=== PATIENT | female | born 1955 | race Caucasian/White ===

== ENCOUNTER 2017-03-08 11:29 | Emergency (ER) | payer BC, OTHER ==
[~2017-03-08] VITALS: Ht 152.4 cm; Wt 54.1 kg
[~2017-03-08 11:29] MED LIST: CLC6 PO; CLTP PO; DSP25 PO; FAMO20TA11 PO; IBUP-1428 PO; SYN75 PO
[2017-03-08 11:34] VITALS: TEMP 36.7; Ht 152.4 cm; Wt 54.1 kg
--- NOTE | 2017-03-08 12:07 | EMERGENCY ROOM VISIT NOTE ---
History First contact with patient: 11:42 Chief Complaint: BACK PAIN Stated Complaint: MID BACK PAIN X 7-10 DAYS,WORSE AT NIGHT History of Present Illness The patient is a 61 year old female who presents to the Emergency Room with complaints of mid thoracic back pain. This pain has been present for the last 7- 10 days, worse on deep breathing and at night when lying down. Worse at night/ lying down (after getting up from falling asleep on sofa) 04/06, currently 12/05. Radiation across back both sides. No acid taste in her mouth. No associated shortness of breath, diaphoresis or palpitations. She denies any claudication, orthopnea or PND. She denies any precipitating trauma however she has recently doubled the amount of time she spends on her exercise bike. Motrin helps with the pain, she last took this at 12:30am. She denies any limb weakness, change in sensation, urinary or bowel incontinence. She denies any leg swelling or family history of DVT/PE. She has osteoporosis but no known fractures associated with this and was previously on bisphosphonates. Review of Systems Chronic dry mouth from Sjogren's. See HPI for pertinent positives & negatives. A total of 10 systems reviewed and were otherwise negative. Past Medical/Surgical History Medical Problems: (1) Hypothyroid (2) Pericardial effusion (3) Sjoegren syndrome Social History Smoking Status: Never Smoker Alcohol Use: occasionally Marital Status: Current/Historical Medications Scheduled Cholecalciferol (Vitamin D3), 1,000 INTER.UNIT PO DAILY Desipramine HCl (Desipramine HCl), 100 MG PO HS Fluticasone Propionate (Nasal) (Flonase Allergy Relief), 1 SPRAY NA DAILY Hydroxychloroquine Sulfate (Plaquenil), 200 MG PO DAILY Krill Oil (Krill Oil 500 mg), 500 MG PO DAILY Levothyroxine Sodium (Synthroid), 100 MCG PO DAILY Loratadine (Claritin), 10 MG PO DAILY Misc Natural Products (Glucosamine Chondroitin T), 1 TAB PO DAILY Multiple Minerals W/ Vitamins (Calcium Citrate +), 600 MG PO DAILY Multivitamin (Multivitamin), 1 TAB PO DAILY Allergies Coded Allergies: No Known Allergies (Unverified , 03/08/17) Physical Exam Vital Signs Date Time Temp Pulse Resp B/P (MAP) Pulse Ox O2 Delivery O2 Flow Rate FiO2 03/08/17 15:43 87 22 136/96 100 03/08/17 13:45 86 20 124/87 100 Room Air 03/08/17 13:17 90 14 158/87 99 Room Air 03/08/17 12:06 105 03/08/17 12:01 Room Air 03/08/17 11:57 97 20 131/91 100 Room Air 03/08/17 11:34 36.7 66 16 136/91 96 Room Air Pain Rating (0-10): 0 Physical Exam VITAL SIGNS: were reviewed as above GENERAL: no acute distress SKIN: Warm dry and pink, no rashes HEAD: Normocephalic and atraumatic EYES: extraocular muscles intact, pupils equal OROPHARYNX: non erythematous, clear and moist NECK: Supple, no adenopathy or meningismus LUNGS: regular rate, clear to auscultation, no crackles or wheezing, no accessory muscle use HEART: Regular rate and rhythm, heart sounds 1+2, no murmurs, no rubs ABDOMEN: Soft and nontender, bowel sounds normal BACK: no CVA tenderness EXTREMITIES: Warm and well perfused, no calf tenderness/swelling, no pedal edema. NEUROLOGICALLY: Awake alert and oriented. There is no facial droop. Speech is clear. Vision is grossly normal. Lower limb power and sensation normal. Medical Decision & Procedures ER Provider Diagnostic Interpretation: CHEST 1 VW FRONT-NOT PORTABLE CLINICAL HISTORY: BACK PAIN HISTORY OF PERICARDIAL EFFUSION. COMPARISON STUDY: 08/31/2011 FINDINGS: The cardiac and mediastinal contours are normal. There is no evidence of focal pulmonary consolidation. There is no evidence of failure. No pleural effusions are visualized.[ IMPRESSION: No active disease in the chest. Electronically signed by: Beau Guerrero M.D. 03/08/2017 1:48 PM Dictated Date/Time: 03/08/2017 1:47 PM THORACIC SPINE 3 VIEWS ROUTINE CLINICAL HISTORY: T9-T11 back pain COMPARISON STUDY: No previous studies for comparison. FINDINGS: There is a minor spinal curvature convex to the left. There are multilevel degenerative changes most pronounced in the lower thoracic spine. There are prominent anterior and lateral osteophytes. No acute fractures or traumatic subluxations are visualized. There are no destructive lesions. IMPRESSION: 1. Moderate multilevel degenerative change 2. No acute fractures. No destructive lesions are visualized. Electronically signed by: Beau Guerrero M.D. 03/08/2017 1:49 PM Dictated Date/Time: 03/08/2017 1:48 PM Laboratory Results 03/08/17 12:35 Red Blood Count 3.60, Mean Corpuscular Volume 94.7, Mean Corpuscular Hemoglobin 31.9, Mean Corpuscular Hemoglobin Concent 33.7, Mean Platelet Volume 9.1, Neutrophils (%) (Auto) 69.9, Lymphocytes (%) (Auto) 19.3, Monocytes (%) (Auto) 9.5, Eosinophils (%) (Auto) 1.0, Basophils (%) (Auto) 0.2, Neutrophils # (Auto) 6.01, Lymphocytes # (Auto) 1.66, Monocytes # (Auto) 0.82, Eosinophils # (Auto) 0.09, Basophils # (Auto) 0.02 03/08/17 12:35 Test 03/08/17 12:35 White Blood Count 8.61 K/uL (4.8-10.8) Red Blood Count 3.60 M/uL (4.2-5.4) Hemoglobin 11.5 g/dL (12.0-16.0) Hematocrit 34.1 % (37-47) Mean Corpuscular Volume 94.7 fL (80-100) Mean Corpuscular Hemoglobin 31.9 pg (25-34) Mean Corpuscular Hemoglobin Concent 33.7 g/dl (32-36) Platelet Count 264 K/uL (130-400) Mean Platelet Volume 9.1 fL (7.4-10.4) Neutrophils (%) (Auto) 69.9 % Lymphocytes (%) (Auto) 19.3 % Monocytes (%) (Auto) 9.5 % Eosinophils (%) (Auto) 1.0 % Basophils (%) (Auto) 0.2 % Neutrophils # (Auto) 6.01 K/uL (1.4-6.5) Lymphocytes # (Auto) 1.66 K/uL (1.2-3.4) Monocytes # (Auto) 0.82 K/uL (0.11-0.59) Eosinophils # (Auto) 0.09 K/uL (0-0.5) Basophils # (Auto) 0.02 K/uL (0-0.2) RDW Standard Deviation 44.7 fL (36.4-46.3) RDW Coefficient of Variation 12.9 % (11.5-14.5) Immature Granulocyte % (Auto) 0.1 % Immature Granulocyte # (Auto) 0.01 K/uL (0.00-0.02) Anion Gap 8.0 mmol/L (3-11) Est Creatinine Clear Calc Drug Dose 61.7 ml/min Estimated GFR () 108.4 Estimated GFR (Non- 93.5 BUN/Creatinine Ratio 13.6 (10-20) Calcium Level 8.6 mg/dl (8.5-10.1) Total Bilirubin 0.6 mg/dl (0.2-1) Aspartate Amino Transf (AST/SGOT) 20 U/L (15-37) Alanine Aminotransferase (ALT/SGPT) 27 U/L (12-78) Alkaline Phosphatase 106 U/L (45-117) Troponin I < 0.015 ng/ml (0-0.045) Total Protein 6.8 gm/dl (6.4-8.2) Albumin 3.7 gm/dl (3.4-5.0) Globulin 3.1 gm/dl (2.5-4.0) Albumin/Globulin Ratio 1.2 (0.9-2) Lipase 129 U/L (73-393) ECG Indication: back/shoulder pain Rate (beats per minute): 88 Rhythm: normal sinus Change: Comparison EKG 12/27/[address] elevation no longer present otherwise appears similar ED Course 11:45am Complete history and physical performed 12:15pm Discussed with Dr Raygoza who agreed with plana and separately performed history and physical After all imaging and labs were back, the results were discussed with the patient. She was reassured and discharged. Medical Decision Prior records/ancillary studies reviewed. Triage Nursing notes reviewed. Additional history obtained from patient The patient's history was concerning for back pain. Differential diagnosis: Etiologies such as musculoskeletal, disc herniation, fracture, aortic disease, metastatic disease, cord compression, discitis, infection, renal colic, gastrointestinal, acute exacerbation of chronic back pain, sciatica, cauda equina, as well as others were entertained. Physical findings: As above. No focal neurologic findings noted. ER treatment provided: On reassessment the patient felt better. Diagnostics interpreted by me: The labs revealed mild anemia only Imaging studies: moderate degenerative changes of thoracic spine but otherwise unremarkable This appears to be consistent with MSK thoracic back pain. The patient's physical examination and detailed history did not reveal any red flags for back pain such as those listed in the differential diagnosis. Therefore advanced diagnostics and consultations were felt to be unwarranted. By the evaluation outlined above emergent etiologies such as pericardial effusion, fracture, aortic disease, metastatic disease, infection, renal colic, gastrointestinal, cord compression, cauda equina, as well as others were deemed relatively unlikely. The patient informed about the findings as listed above and advised to reduce her exercise regimen, stretch more and follow up with her PCP. All questions were answered and she pleased with the investigation. Return instructions were outlined and the patient was discharged in stable condition. Referral: The patient was referred back to her primary care physician for follow-up as previously arranged in 3 days. Impression Primary Impression: Thoracic back pain Additional Impression: Anemia Departure Information Dispostion Home / Self-Care Condition GOOD Referrals Neda Montoya M.D. (PCP) Patient Instructions [facility], [facility] Resident Tracking Resident Involvement: Resident Care Provided Care Provided: Adult ED Problem Qualifiers Primary Impression: Thoracic back pain Chronicity: acute Back pain laterality: bilateral Qualified Codes: M54.6 - Pain in thoracic spine Additional Impression: Anemia Anemia type: unspecified type Qualified Codes: D64.9 - Anemia, unspecified
[2017-03-08 12:55] LABS: BASO % 0.2 %; BASO ABS # 0.02 K/uL (0-0.2); COMPLETE YES; HEMATOCRIT 34.1 % (37-47); IG% 0.1 %; LYMPH % 19.3 %; LYMPH ABS # 1.66 K/uL (1.2-3.4); MEAN CELL VOLUME 94.7 fL (80-100); MEAN CORPUSCULAR HEMOGLOBIN 31.9 pg (25-34); MEAN CORPUSCULAR HGB CONC 33.7 g/dl (32-36); MEAN PLATELET VOLUME 9.1 fL (7.4-10.4); MONO % 9.5 %; NEUT % 69.9 %; PLATELET COUNT 264 K/uL (130-400); WHITE BLOOD COUNT 8.61 K/uL (4.8-10.8)
[2017-03-08 13:15] LABS: ALT/SGPT 27 U/L (12-78); AST/SGOT 20 U/L (15-37); BLOOD UREA NITROGEN 9 mg/dl (7-18); BUN/CREATININE RATIO 13.6 (10-20); CALCIUM 8.6 mg/dl (8.5-10.1); CARBON DIOXIDE 29 mmol/L (21-32); CHLORIDE 105 mmol/L (98-107); CREATININE 0.67 mg/dl (0.60-1.20); GLUCOSE 85 mg/dl (70-99); POTASSIUM 3.9 mmol/L (3.5-5.1); SODIUM 142 mmol/L (136-145)
[2017-03-08] MEDS ORDERED: MULT-506 PO (13:19)
[2017-03-08] MEDS ORDERED: HYDR200T5 PO (13:19)
[2017-03-08] MEDS ORDERED: SYN100 PO (13:19)
[2017-03-08] MEDS ORDERED: [UNRECOGNIZED DRUG - CODE] PO (13:19)
[2017-03-08] MEDS ORDERED: MISC1TAB85 PO (13:19)
[2017-03-08] MEDS ORDERED: MULT-360 PO (13:19)
[2017-03-08] MEDS ORDERED: CHOL1000 PO (13:19)
[2017-03-08] MEDS ORDERED: KRIL1CAP24 PO (13:19)
[2017-03-08 13:20] LABS: ALB/GLOB RATIO 1.2 (0.9-2); ALKALINE PHOSPHATASE 106 U/L (45-117)
[2017-03-08] MEDS ORDERED: FLUT0.15 (13:20)
[2017-03-08] MEDS ORDERED: CLR10 PO (13:20)
--- NOTE | 2017-03-08 13:49 | DIAGNOSTIC IMAGING REPORT ---
CHEST 1 VW FRONT-NOT PORTABLE CLINICAL HISTORY: BACK PAIN HISTORY OF PERICARDIAL EFFUSION. COMPARISON STUDY: 08/31/2011 FINDINGS: The cardiac and mediastinal contours are normal. There is no evidence of focal pulmonary consolidation. There is no evidence of failure. No pleural effusions are visualized.[ IMPRESSION: No active disease in the chest. Electronically signed by: Beau Guerrero M.D. 03/08/2017 1:48 PM Dictated Date/Time: 03/08/2017 1:47 PM
--- NOTE | 2017-03-08 13:50 | DIAGNOSTIC IMAGING REPORT ---
THORACIC SPINE 3 VIEWS ROUTINE CLINICAL HISTORY: T9-T11 back pain COMPARISON STUDY: No previous studies for comparison. FINDINGS: There is a minor spinal curvature convex to the left. There are multilevel degenerative changes most pronounced in the lower thoracic spine. There are prominent anterior and lateral osteophytes. No acute fractures or traumatic subluxations are visualized. There are no destructive lesions. IMPRESSION: 1. Moderate multilevel degenerative change 2. No acute fractures. No destructive lesions are visualized. Electronically signed by: Beau Guerrero M.D. 03/08/2017 1:49 PM Dictated Date/Time: 03/08/2017 1:48 PM
--- NOTE | 2017-03-08 14:11 | EMERGENCY ROOM VISIT NOTE ---
ED Visit Note First contact with patient: 11:42 Resident Physician Supervision Note: I interviewed and examined the patient. Discussed with and agree with findings and plan as documented in the note. Any exceptions or clarifications are listed here: [None] Documented By: Jackson Raygoza
[2017-03-08 15:43] VITALS: BP 136/96; PULSE 87; O2SAT 100
[2017-04-07] MEDS ORDERED: CHOL1000 PO (13:45)
[2017-04-07] MEDS ORDERED: GLUCTAB7 PO (13:45)
[2017-04-07] MEDS ORDERED: HYDR200T5 PO (13:45)
[2017-04-07] MEDS ORDERED: [UNRECOGNIZED DRUG - CODE] PO (13:45)
[2017-04-07] MEDS ORDERED: MULT-506 PO (13:45)
[2017-04-07] MEDS ORDERED: NAPR1TAB9 PO (13:45)
[2017-04-07] MEDS ORDERED: CLR10 PO (13:45)
[2017-04-07] MEDS ORDERED: MULT-360 PO (13:45)
[2017-04-07] MEDS ORDERED: LEVO100T7 PO (13:45)
[2017-05-08] MEDS ORDERED: BROM0.07 OPL (10:23)
[2017-05-08] MEDS ORDERED: DIFL0.0519 OPL (10:23)
== END 2017-03-08 14:55 | disposition home or self-care (01) ==
LOC: C.EDB 11:31
DX: M54.6 Pain in thoracic spine (principal); D64.9 Anemia, unspecified; E03.9 Hypothyroidism, unspecified; M35.00 Sjogren syndrome, unspecified; Z79.899 Other long term (current) drug therapy

== ENCOUNTER → 2017-04-28 | Day surgery (SDC) | payer OTHER ==
[2017-04-07 13:45] VITALS: Ht 152.4 cm; Wt 51.8 kg
[~2017-04-28] VITALS: Ht 152.4 cm; Wt 51.8 kg
[~2017-04-28] MED LIST changes: +500ML BSS 0.3ML EPI 1:1000PF IRRIG ONE; +ACETAMINOPHEN 325 MG TAB PO PRN; +AMVISC PLAIN 0.8ML SYRINGE INT OCU ONE; +AMVISC PLUS 0.8ML SYRINGE INT OCU ONE; +ATROPINE SULFATE 0.1 MG/ML 5ML SYR IV PRN; +BROM0.07 OPL; +BSS FLUSH ONE; +CHOL1000 PO; -CLC6 PO; +CLR10 PO; -CLTP PO; +DIFL0.0519 OPL; -DSP25 PO; +EpHEDrine SULFATE INJ 50 MG/ML AMP IV PRN; +EpINEphrine INJ 1MG/ML AMP 1 MG/ML AMP ONE; -FAMO20TA11 PO; +FENTANYL CITRATE INJ 50 MCG/1 ML 2 ML VIAL IV PRN; +FLUMAZENIL 0.1 MG/1 ML 10 ML VIAL IV PRN; +GLUCTAB7 PO; +HYDR200T5 PO; +HYDROmorphone INJ 1 MG/ML SYR IV PRN; -IBUP-1428 PO; +LABETALOL HCL IV 5 MG/ML 20ML IV PRN; +LACTATED RINGER'S 1000ML 500 ML IV SCH; +LEVO100T7 PO; +LIDOCAINE 3.5% OPH GEL PER APPLICATION CHARGE ONE; +LIDOCAINE HCL 1% MPF 2 ML VIAL ONE; +MEPERIDINE HCL 25 MG/ML CARP IV PRN; +MIDAZOLAM HCL 1 MG/ML 2ML VIAL ONE; +MULT-360 PO; +MULT-506 PO; +NALOXONE HCL 0.4 MG/1 ML VIAL/CARP IV PRN; +NAPR1TAB9 PO; +OCUCOAT 1 ML SOLN IO ONE; +ONDANSETRON INJ 2 MG/ML 2 ML VIAL IV PRN; +PHENYLEPHRINE 100MCG/ML 5ML SYR IV PRN; +POVIDONE-IODINE OP SOLN 30 ML BTL ONE; +PROPARACAINE 0.5% OP SOLN PER DROP CHARGE OPL SCH; -SYN75 PO; +TOBRAMYCIN/DEXAMETHASONE OPH OINT PER APPLN CHARGE ONE; +[UNRECOGNIZED DRUG - CODE] PO
[2017-04-28] MEDS: PHENYLEPHRINE HCL 2.5% OP SOLN PER DROP CHARGE OPL SCH ×2 (07:36→07:44)
[2017-04-28] MEDS: TROPICAMIDE 1% OP SOLN PER DROP CHARGE OPL SCH ×2 (07:40→07:46)
[2017-04-28] MEDS: CYCLOPENTOLATE HCL 1% OP SOLN PER DROP CHARGE OPL SCH ×2 (07:41→07:45)
[2017-04-28] MEDS: KETOROLAC 0.5% OP SOLN PER DROP CHARGE OPL SCH ×2 (07:42→07:47)
[2017-04-28] MEDS: GATIFLOXACIN OP SOLN PER DROP CHARGE OPL SCH ×2 (07:43→07:53)
--- NOTE | 2017-04-28 08:00 | History & Physical Bridge - SC ---
H&P Re-Evaluation Bridge Note: I have examined the patient, reviewed the History & Physical and in the interval since the performance of the History & Physical I have noted the following changes of clinical significance: Diagnosis: Left Cataract Procedure: Left Cataract Removal with Lens Implant No changes noted
--- NOTE | 2017-04-28 08:55 | Discharge Instructions-SurgCtr ---
Discharge Instructions Date of Service Apr 28, 2017. Visit Reason for Visit: Left Cataract Discharge Discharge Diagnosis / Problem: cataract Discharge Goals Goal(s): Improve function Activity Recommendations Activity Limitations: per Instructions/Follow-up section Anesthesia . Post Anesthesia Instructions: If you have had General Anesthesia or IV Sedation: * Do not drive today. * Resume driving when surgeon permits. * Do not make important decisions or sign legal documents today. * Call surgeon for: 1. Temperature elevations greater than 101 degrees F. 2. Uncontrollable pain. 3. Excessive bleeding. 4. Persistent nausea and vomiting. 5. Medication intolerance (nausea, vomiting or rash). * For nausea and vomiting use only clear liquids such as: tea, soda, bouillon until nausea subsides, then gradually increase diet as tolerated. * If you have any concerns or questions, call your surgeon's office. If physician is unavailable and it is an emergency, call 911 or go to the nearest emergency room. . Instructions / Follow-Up Instructions / Follow-Up ACTIVITY RECOMMENDATIONS: * No strenuous lifting, jogging or running for 4 days * No swimming or yard work for 1 week. * Limited bending is permitted, such as putting on shoes. RETURN TO SCHOOL/WORK: No work until seen by physician in office. MEDICATIONS: Resume previous medications unless instructed otherwise by your surgeon. This includes eye drops for glaucoma. Zymaxid/Gatifloxacin (silva cap) - one drop every 2 hours until bedtime Nevanac/Ilevro/Prolensa/Ketorolac (edmondson cap) - one drop every 4 hours until bedtime Prednisolone/Durezol (white/pink cap, SHAKE WELL) - one drop every 2 hours until bedtime Starting tomorrow - all 3 drops every 4 hours until seen in the office Optive drops - as needed for discomfort SPECIAL CARE INSTRUCTIONS: * Wear eyeshield when sleeping, for four nights. * You may wear your own glasses or sunglasses while awake. * You may read or watch TV * You may shower and wash your face, but be gentle around the eye and pat dry. * Blurry vision and mild irritation are normal. * Call office if pain is more severe or vision becomes dark at . FOLLOW UP VISIT: Follow-up with Dr Damon tomorrow. Diet Recommendations Home Diet: resume previous diet Procedures Procedures Performed: Left Cataract Phacoemulsification With Intraocular Lens Implant; Toric Lens Pending Studies Studies pending at discharge: no Medical Emergencies . Who to Call and When: Medical Emergencies: If at any time you feel your situation is an emergency, please call 911 immediately. . Non-Emergent Contact Non-Emergency issues call your: [employer]erving Plant [employer]orer . . "Provider Documentation" section prepared by Jonnie Damon. .
[2017-04-28 08:57] VITALS: TEMP 37
--- NOTE | 2017-04-28 08:57 | [facility] Operative Report ---
Operative Report Date of Service Apr 28, 2017. Operative Report 1. PREOPERATIVE DIAGNOSIS: Cataract of the left eye. 2. POSTOPERATIVE DIAGNOSIS: Same. 3. PROCEDURE: Phacoemulsification with intraocular lens implantation of the left eye. SURGEON: Dr. Jonnie Damon. ANESTHESIA: Topical Lidocaine gel, 1% Non- Preserved intracameral Lidocaine, and monitored intravenous sedation. INDICATIONS FOR THE PROCEDURE: The patient is a 61 - year-old female with a history of cataract of the left eye causing significant visual impairment. The details of the proposed procedure were explained to the patient who asked appropriate questions and following discussion of all risks, benefits and alternatives agreed to have the procedure done. Patient had corneal astigmatism and therefore elected to have a toric lens placed. 4. OPERATION AND FINDINGS: DESCRIPTION OF PROCEDURE: After informed consent was obtained,patient was placed in an upright position and the cornea was marked at 62 degrees using the [employer] corneal marking tool. The the patient was brought to the Operating Room at the [facility]. The patient was placed in a supine position and then the left eye was prepped and draped in the usual sterile fashion for intraocular surgery. A drop of topical Lidocaine gel was placed in the operative eye. A wire lid speculum was then placed in the fornices. A corneal paracentesis was then created temporally. The Non-Preserved Lidocaine was then instilled into the anterior chamber. The anterior chamber was then pressurized with viscoelastic. A 2.0 mm clear corneal incision was then created temporally. A cystotome was inserted into the anterior chamber and used to create a tear in the anterior lens capsule. This capsular tear was then used to create a small flap and the flap was dragged in a counterclockwise direction in order to create a continuous curvilinear capsulorrhexis. Hydrodissection was accomplished with balanced salt solution. Phacoemulsification of the lens nucleus was then performed in a standard divide- and-conquer technique. The phaco time was 19 seconds with an average power of 7 %. The remaining cortical material was removed using irrigation aspiration. The capsular bag was then filled with viscoelastic. A Eric [id number] +16.0 diopters lens was then loaded into the injector and injected into the capsular bag. The lens was aligned with the previously made corneal atwood. The remaining viscoelastic was removed with the irrigation aspiration handpiece. The wound was hydrated and then checked and found to be watertight. The intraocular pressure was checked and found to be adequate. The wire lid speculum was removed and the patient's face was cleaned and dried. TobraDex ointment was placed in the inferior fornix. The patient was discharged to the Recovery Room having tolerated the procedure well. There were no complications. The patient will be seen tomorrow in the office for follow-up. I attest to the content of the Intraoperative Record and any orders documented therein. Any exceptions are noted below.
--- NOTE | 2017-04-28 09:05 | Anesthesia Progress Nt - [facility] ---
Anesthesia Post Op Note Date & Time Apr 28, 2017 at 09:05 Vital Signs Pain Intensity: 0 Vital Signs Past 12 Hours Date Time Temp Pulse Resp B/P (MAP) Pulse Ox O2 Delivery O2 Flow Rate FiO2 04/28/17 08:57 37 77 16 121/80 (94) 100 Room Air 04/28/17 07:28 36.6 90 16 122/85 (97) 100 Room Air Notes Mental Status: alert / awake / arousable, participated in evaluation Pt Amnestic to Procedure: Yes Nausea / Vomiting: adequately controlled Pain: adequately controlled Airway Patency, RR, SpO2: stable & adequate BP & HR: stable & adequate Hydration State: stable & adequate Anesthetic Complications: no major complications apparent
[2017-04-28 09:11] VITALS: BP 120/84; PULSE 78; O2SAT 100
== END | disposition home or self-care (01) ==
LOC: X.SURG 07:16
PROVIDERS: ATTEND Ophthalmology
DX: H26.9 Unspecified cataract (principal); E03.9 Hypothyroidism, unspecified; F50.81 Binge eating disorder; F32.9 Major depressive disorder, single episode, unspecified; M81.0 Age-related osteoporosis without current pathological fracture; M35.00 Sjogren syndrome, unspecified; Z82.69 Family history of other diseases of the musculoskeletal system and connective tissue; Z82.5 Family history of asthma and other chronic lower respiratory diseases; Z92.29 Personal history of other drug therapy; M19.90 Unspecified osteoarthritis, unspecified site

== ENCOUNTER → 2017-05-19 | Day surgery (SDC) | payer OTHER ==
[2017-05-08 10:24] VITALS: Ht 152.4 cm; Wt 51.8 kg
[~2017-05-19] VITALS: Ht 152.4 cm; Wt 51.8 kg
[~2017-05-19] MED LIST changes: -FENTANYL CITRATE INJ 50 MCG/1 ML 2 ML VIAL IV PRN; -FLUMAZENIL 0.1 MG/1 ML 10 ML VIAL IV PRN; -HYDROmorphone INJ 1 MG/ML SYR IV PRN; -LABETALOL HCL IV 5 MG/ML 20ML IV PRN; -MEPERIDINE HCL 25 MG/ML CARP IV PRN; -NALOXONE HCL 0.4 MG/1 ML VIAL/CARP IV PRN; -PHENYLEPHRINE 100MCG/ML 5ML SYR IV PRN; -PROPARACAINE 0.5% OP SOLN PER DROP CHARGE OPL SCH; +PROPARACAINE 0.5% OP SOLN PER DROP CHARGE OPR SCH
[2017-05-19] MEDS: PHENYLEPHRINE HCL 2.5% OP SOLN PER DROP CHARGE OPR SCH ×2 (09:41→09:46)
[2017-05-19] MEDS: TROPICAMIDE 1% OP SOLN PER DROP CHARGE OPR SCH ×2 (09:42→09:47)
[2017-05-19] MEDS: CYCLOPENTOLATE HCL 1% OP SOLN PER DROP CHARGE OPR SCH ×2 (09:43→09:48)
[2017-05-19] MEDS: KETOROLAC 0.5% OP SOLN PER DROP CHARGE OPR SCH ×2 (09:44→09:49)
[2017-05-19] MEDS: GATIFLOXACIN OP SOLN PER DROP CHARGE OPR SCH ×2 (09:45→09:57)
--- NOTE | 2017-05-19 10:26 | History & Physical Bridge - SC ---
H&P Re-Evaluation Bridge Note: I have examined the patient, reviewed the History & Physical and in the interval since the performance of the History & Physical I have noted the following changes of clinical significance: Diagnosis: Right Cataract Procedure: Right Cataract Removal with Lens Implant No changes noted
--- NOTE | 2017-05-19 11:02 | Discharge Instructions-SurgCtr ---
Discharge Instructions Date of Service May 19, 2017. Visit Reason for Visit: Cataract Right Eye Discharge Discharge Diagnosis / Problem: cataract Discharge Goals Goal(s): Improve function Activity Recommendations Activity Limitations: per Instructions/Follow-up section Anesthesia . Post Anesthesia Instructions: If you have had General Anesthesia or IV Sedation: * Do not drive today. * Resume driving when surgeon permits. * Do not make important decisions or sign legal documents today. * Call surgeon for: 1. Temperature elevations greater than 101 degrees F. 2. Uncontrollable pain. 3. Excessive bleeding. 4. Persistent nausea and vomiting. 5. Medication intolerance (nausea, vomiting or rash). * For nausea and vomiting use only clear liquids such as: tea, soda, bouillon until nausea subsides, then gradually increase diet as tolerated. * If you have any concerns or questions, call your surgeon's office. If physician is unavailable and it is an emergency, call 911 or go to the nearest emergency room. . Instructions / Follow-Up Instructions / Follow-Up ACTIVITY RECOMMENDATIONS: * No strenuous lifting, jogging or running for 4 days * No swimming or yard work for 1 week. * Limited bending is permitted, such as putting on shoes. RETURN TO SCHOOL/WORK: No work until seen by physician in office. MEDICATIONS: Resume previous medications unless instructed otherwise by your surgeon. This includes eye drops for glaucoma. Zymaxid/Gatifloxacin (silva cap) - one drop every 2 hours until bedtime Nevanac/Ilevro/Prolensa/Ketorolac (edmondson cap) - one drop every 4 hours until bedtime Prednisolone/Durezol (white/pink cap, SHAKE WELL) - one drop every 2 hours until bedtime Starting tomorrow - all 3 drops every 4 hours until seen in the office Optive drops - as needed for discomfort SPECIAL CARE INSTRUCTIONS: * Wear eyeshield when sleeping, for four nights. * You may wear your own glasses or sunglasses while awake. * You may read or watch TV * You may shower and wash your face, but be gentle around the eye and pat dry. * Blurry vision and mild irritation are normal. * Call office if pain is more severe or vision becomes dark at . FOLLOW UP VISIT: Follow-up with Dr Damon tomorrow. Diet Recommendations Home Diet: resume previous diet Procedures Procedures Performed: Right Cataract Phacoemulsification With Intraocular Lens Implant Pending Studies Studies pending at discharge: no Medical Emergencies . Who to Call and When: Medical Emergencies: If at any time you feel your situation is an emergency, please call 911 immediately. . Non-Emergent Contact Non-Emergency issues call your: Hand Flesher . . "Provider Documentation" section prepared by Jonnie Damon. .
--- NOTE | 2017-05-19 11:03 | [facility] Operative Report ---
Operative Report Date of Service May 19, 2017. Operative Report 1. PREOPERATIVE DIAGNOSIS: Cataract of the right eye. 2. POSTOPERATIVE DIAGNOSIS: Same. 3. PROCEDURE: Phacoemulsification with intraocular lens implantation of the right eye. SURGEON: Dr. Jonine Damon. ANESTHESIA: Topical Lidocaine gel, 1% Non- Preserved intracameral Lidocaine, and monitored intravenous sedation. INDICATIONS FOR THE PROCEDURE: The patient is a 61 - year-old female with a history of cataract of the right eye causing significant visual impairment. The details of the proposed procedure were explained to the patient who asked appropriate questions and following discussion of all risks, benefits and alternatives agreed to have the procedure done. Patient had corneal astigmatism and therefore elected to have a toric lens placed. 4. OPERATION AND FINDINGS: DESCRIPTION OF PROCEDURE: After informed consent was obtained, patient was placed in an upright position and the cornea was marked at <> degrees using the [employer] corneal marking tool. The the patient was brought to the Operating Room at the [facility]. The patient was placed in a supine position and then the right eye was prepped and draped in the usual sterile fashion for intraocular surgery. A drop of topical Lidocaine gel was placed in the operative eye. A wire lid speculum was then placed in the fornices. A corneal paracentesis was then created temporally. The Non-Preserved Lidocaine was then instilled into the anterior chamber. The anterior chamber was then pressurized with viscoelastic. A 2.0 mm clear corneal incision was then created temporally. A cystotome was inserted into the anterior chamber and used to create a tear in the anterior lens capsule. This capsular tear was then used to create a small flap and the flap was dragged in a counterclockwise direction in order to create a continuous curvilinear capsulorrhexis. Hydrodissection was accomplished with balanced salt solution. Phacoemulsification of the lens nucleus was then performed in a standard divide- and-conquer technique. The phaco time was 18 seconds with an average power of 12 %. The remaining cortical material was removed using irrigation aspiration. The capsular bag was then filled with viscoelastic. A Eric [id number] +17.5 diopters lens was then loaded into the injector and injected into the capsular bag. The lens was aligned with the previously made corneal atwood. The remaining viscoelastic was removed with the irrigation aspiration handpiece. The wound was hydrated and then checked and found to be watertight. The intraocular pressure was checked and found to be adequate. The wire lid speculum was removed and the patient's face was cleaned and dried. TobraDex ointment was placed in the inferior fornix. The patient was discharged to the Recovery Room having tolerated the procedure well. There were no complications. The patient will be seen tomorrow in the office for follow-up. I attest to the content of the Intraoperative Record and any orders documented therein. Any exceptions are noted below.
[2017-05-19 11:04] VITALS: TEMP 36.6
[2017-05-19 11:17] VITALS: BP 109/75; PULSE 79; O2SAT 98
--- NOTE | 2017-05-19 11:23 | Anesthesia Progress Nt - [facility] ---
Anesthesia Post Op Note Date & Time May 19, 2017 at 11:23 Vital Signs Pain Intensity: 4 Vital Signs Past 12 Hours Date Time Temp Pulse Resp B/P (MAP) Pulse Ox O2 Delivery O2 Flow Rate FiO2 05/19/17 11:17 79 16 109/75 (86) 98 Room Air 05/19/17 11:04 36.6 71 16 112/79 (90) 100 Room Air 05/19/17 09:33 36.8 77 20 119/82 (94) 100 Room Air Notes Mental Status: alert / awake / arousable, participated in evaluation Pt Amnestic to Procedure: Yes Nausea / Vomiting: adequately controlled Pain: adequately controlled Airway Patency, RR, SpO2: stable & adequate BP & HR: stable & adequate Hydration State: stable & adequate Anesthetic Complications: no major complications apparent
== END | disposition home or self-care (01) ==
LOC: X.SURG 08:56
PROVIDERS: ATTEND Ophthalmology
DX: H26.9 Unspecified cataract (principal); M19.90 Unspecified osteoarthritis, unspecified site; E03.9 Hypothyroidism, unspecified; F32.9 Major depressive disorder, single episode, unspecified; M81.0 Age-related osteoporosis without current pathological fracture; F50.81 Binge eating disorder; Z82.5 Family history of asthma and other chronic lower respiratory diseases

== ENCOUNTER → 2017-08-25 | Outpatient (CLI) | payer OTHER ==
[~2017-08-25] MED LIST changes: -500ML BSS 0.3ML EPI 1:1000PF IRRIG ONE; -ACETAMINOPHEN 325 MG TAB PO PRN; -AMVISC PLAIN 0.8ML SYRINGE INT OCU ONE; -AMVISC PLUS 0.8ML SYRINGE INT OCU ONE; -ATROPINE SULFATE 0.1 MG/ML 5ML SYR IV PRN; -BSS FLUSH ONE; -EpHEDrine SULFATE INJ 50 MG/ML AMP IV PRN; -EpINEphrine INJ 1MG/ML AMP 1 MG/ML AMP ONE; -LACTATED RINGER'S 1000ML 500 ML IV SCH; -LIDOCAINE 3.5% OPH GEL PER APPLICATION CHARGE ONE; -LIDOCAINE HCL 1% MPF 2 ML VIAL ONE; -MIDAZOLAM HCL 1 MG/ML 2ML VIAL ONE; -OCUCOAT 1 ML SOLN IO ONE; -ONDANSETRON INJ 2 MG/ML 2 ML VIAL IV PRN; -POVIDONE-IODINE OP SOLN 30 ML BTL ONE; -PROPARACAINE 0.5% OP SOLN PER DROP CHARGE OPR SCH; -TOBRAMYCIN/DEXAMETHASONE OPH OINT PER APPLN CHARGE ONE
== END | disposition home or self-care (01) ==
LOC: C.LABPVFM 10:26
PROVIDERS: ATTEND Nurse Practitioner Family
DX: Z79.899 Other long term (current) drug therapy (principal)

== ENCOUNTER → 2017-08-31 | Outpatient (CLI) | payer OTHER ==
--- NOTE | 2017-09-01 14:27 | MAMMOGRAPHY REPORT ---
BILATERAL DIGITAL SCREENING MAMMOGRAM TOMOSYNTHESIS WITH CAD: 08/31/2017 CLINICAL HISTORY: Routine screening. Patient has no complaints. TECHNIQUE: Breast tomosynthesis in addition to standard 2D mammography was performed. Current study was also evaluated with a Computer Aided Detection (CAD) system. COMPARISON: Comparison is made to exams dated: 08/28/2016 mammogram, 08/27/2015 mammogram, 08/22/2014 mammogram, 07/13/2013 mammogram, 07/05/2012 mammogram, and 07/02/2011 mammogram - [facility] [address]. BREAST COMPOSITION: There are scattered areas of fibroglandular density in both breasts. FINDINGS: There is a 6 mm nodular asymmetry in the lateral, middle to posterior left breast, only se en on the CC view. Additional spot compression tomosynthesis views and possible ultrasound are recom mended. There are minimal vascular calcifications in the breasts. No other suspicious mass, architectural dis tortion or cluster of microcalcifications is seen. IMPRESSION: ACR BI-RADS CATEGORY 0: INCOMPLETE EVALUATION: NEED ADDITIONAL IMAGING EVALUATION The 6 mm nodular asymmetry in the lateral left breast needs additional evaluation. The patient will be called to schedule an appointment. Approximately 10% of breast cancers are not detected with mammography. A negative mammographic report should not delay biopsy if a clinically suggestive mass is present. Ju Valdez M.D. ay/:08/31/2017 16:48:45 Lamp Shade Maker: Desire CONNELLY)(Jose), [facility] letter sent: Addl Imaging 0 BI-RADS Code: ACR BI-RADS Category 0: Incomplete Evaluation: Need Additional Imaging Evaluation
== END | disposition home or self-care (01) ==
LOC: C.MAMM 11:15
PROVIDERS: ATTEND Obstetrics & Gynecology
DX: Z12.31 Encounter for screening mammogram for malignant neoplasm of breast (principal); N64.89 Other specified disorders of breast

== ENCOUNTER → 2017-09-03 | Outpatient (CLI) | payer OTHER ==
--- NOTE | 2017-09-03 14:36 | MAMMOGRAPHY REPORT ---
THIS REPORT HAS BEEN AMENDED. UNILATERAL LEFT DIGITAL DIAGNOSTIC MAMMOGRAM TOMOSYNTHESIS AND TARGETED LEFT ULTRASOUND: 09/03/2017 CLINICAL HISTORY: Callback from screening mammogram for left breast asymmetry. TECHNIQUE: Breast tomosynthesis in addition to standard 2D mammography was performed. Spot compress ion left CC and MLO 2-D and tomosynthesis images were obtained. COMPARISON: Comparison is made to exams dated: 08/31/2017 mammogram, 08/28/2016 mammogram, 08/27/2015 mammogram, 08/22/2014 mammogram, 07/13/2013 mammogram, and 07/05/2012 mammogram - [facility]. BREAST COMPOSITION: There are scattered areas of fibroglandular density in the left breast. FINDINGS: The additional spot compression views demonstrate a round mass with predominantly obscured margins measuring 7 mm in the left superior breast middle depth at approximately 12:00. Targeted ultrasound was performed of the region of the mammographic mass in the left superior breast at approximately 12:00. In the left breast at 11:30, 3 cm from the nipple, there is an oval circumsc ribed nearly anechoic mass with multiple thin internal septations, measuring 6 x 3 x 4 mm. This lorena esponds with the mammographic mass and likely represents a complicated cyst, however, a papillary les ion is not excluded. Recommend ultrasound-guided core needle biopsy for further evaluation. IMPRESSION: ACR BI-RADS CATEGORY 4: SUSPICIOUS, TARGETED ULTRASOUND ACR BI-RADS CATEGORY 4: SUSPICIO US Circumscribed 6 mm mass in the left breast at 11:30 on ultrasound, which corresponds with the mammogr aphic mass. The mass likely represents a complicated cyst, however, a solid mass such as a papilloma cannot be excluded. Recommend ultrasound-guided core needle biopsy for further evaluation. A phone call was made to the physician's office to confirm faxed results were received. The patient has been verbally notified of the results. She tentatively scheduled the biopsy before leaving the [facility]. Approximately 10% of breast cancers are not detected with mammography. A negative mammographic report should not delay biopsy if a clinically suggestive mass is present. Lissa Hicks M.D. /:09/03/2017 14:26:15 Kelp Or Seagrass Gatherer: June Hutchinson, [facility] letter sent: Abnormal 4/5 BI-RADS Code: ACR BI-RADS Category 4: Suspicious Ultrasound BI-RADS: ACR BI-RADS Category 4: Suspici ous AMENDMENT: 09/04/2017 Lissa Hicks M.D. The patient called the breast center on 09/04/2017 and I spoke with her directly over the telephone. The patient would prefer short interval follow-up imaging of the left breast mass as opposed to biops y at this time. This seems reasonable given that the mass most likely represents a cyst. Therefore, recommend follow-up diagnostic tomosynthesis mammograms and ultrasound of the left breast in 6 month s to reevaluate. The patient tentatively scheduled the follow-up appointment over the telephone on 09/04/2017. Amended BI-RADS: ACR BI-RADS Category 4: Suspicious
== END | disposition home or self-care (01) ==
LOC: C.MAMM 12:43
PROVIDERS: ATTEND Obstetrics & Gynecology
DX: R92.2 Inconclusive mammogram (principal)

== ENCOUNTER → 2018-01-07 | Outpatient (CLI) | payer OTHER ==
[2018-01-07 17:12] LABS: HEMATOCRIT 38.9 % (37-47); HEMOGLOBIN 12.8 g/dL (12.0-16.0); MEAN CELL VOLUME 95.8 fL (80-100); MEAN CORPUSCULAR HEMOGLOBIN 31.5 pg (25-34); MEAN CORPUSCULAR HGB CONC 32.9 g/dl (32-36); MEAN PLATELET VOLUME 9.7 fL (7.4-10.4); PLATELET COUNT 265 K/uL (130-400); RED CELL DISTRIBUTION WIDTH CV 13.1 % (11.5-14.5); RED CELL DISTRIBUTION WIDTH SD 45.4 fL (36.4-46.3); WHITE BLOOD COUNT 8.11 K/uL (4.8-10.8)
[2018-01-07 17:40] LABS: ALBUMIN 4.2 gm/dl (3.4-5.0); ALT/SGPT 45 U/L (12-78); CALCIUM 8.9 mg/dl (8.5-10.1); CREATININE 0.85 mg/dl (0.60-1.20)
[2018-01-07 17:43] LABS: ALKALINE PHOSPHATASE 112 U/L (45-117); AST/SGOT 24 U/L (15-37); TOTAL PROTEIN 7.3 gm/dl (6.4-8.2)
== END | disposition home or self-care (01) ==
LOC: C.LABPVFM 13:47
PROVIDERS: ATTEND Physician Assistant
DX: M35.00 Sjogren syndrome, unspecified (principal); M81.0 Age-related osteoporosis without current pathological fracture; Z79.899 Other long term (current) drug therapy

== ENCOUNTER → 2018-02-05 | Outpatient (CLI) | payer OTHER | END | disposition home or self-care (01) | LOC: C.PAPS 13:32 | PROVIDERS: ATTEND Obstetrics & Gynecology | DX: Z01.419 Encounter for gynecological examination (general) (routine) without abnormal findings (principal) ==

== ENCOUNTER → 2018-02-16 | Outpatient (CLI) | payer OTHER | END | disposition home or self-care (01) | LOC: C.MAMM 09:57 | PROVIDERS: ATTEND Physician Assistant | DX: M85.80 Other specified disorders of bone density and structure, unspecified site (principal) ==

== ENCOUNTER 2018-02-17 02:22 | Emergency (ER) | payer OTHER ==
[~2018-02-17] VITALS: Ht 149.9 cm; Wt 56.2 kg
[2018-02-17 02:31] VITALS: TEMP 36.5; Ht 149.9 cm; Wt 56.2 kg
--- NOTE | 2018-02-17 04:31 | EMERGENCY ROOM VISIT NOTE ---
History Report prepared by Erin: Katherine Thornton Under the Supervision of: Dr. Anusha Klein D.O. First contact with patient: 02:34 Chief Complaint: HEAD INJURY (MINOR) Stated Complaint: HIT HEAD, HEAD AND NECK PAIN History of Present Illness The patient is a 62 year old female who presents to the Emergency Room with complaints of an episode of a head injury occurring prior to arrival. The patient states that she sleep walks or has a night terror every few weeks. She reports that tonight she fell asleep on the couch. She states that she woke up and went to bed. She reports that after an hour of sleeping in her bed, she was dreaming that someone was in the room. She states that they gave her something and she accidentally dropped it. She states that in her dream she bent down to get it. The patient states that at this time she hit her head on the wooden foot of the bed and stubbed her finger. The patient complains that her head, her finger, and the back of her neck down across her shoulders are in pain. She notes that she placed ice on her head and finger on the way here. She states that she is slightly nauseous. The patient denies dizziness, lightheadedness, blurry vision, numbness, and the use of blood thinners. The patient's denies the patient being unsteady on her feet following the incident. Source of History: patient Onset: prior to arrival Position: head Quality: other (injury) Timing: other (episode) Associated Symptoms: + headache, + neck pain, + nausea, No numbness Note: The patient complains of finger pain. The patient denies dizziness, lightheadedness, blurry vision, and the use of blood thinners. Review of Systems See HPI for pertinent positives & negatives. A total of 10 systems reviewed and were otherwise negative. Past Medical & Surgical Medical Problems: (1) Hypothyroid (2) Pericardial effusion (3) Sjoegren syndrome Family History No pertinent family history Social History Smoking Status: Never Smoker Alcohol Use: occasionally Marital Status: Housing Status: lives with significant other Current/Historical Medications Scheduled Desipramine Hcl (Norpramin), 100 MG PO HS Qayuoefonyn-Ejsassfbgym-Xda C- (Glucosamine Chondroitin), 1 TAB PO DAILY AFTERNOON Hydroxychloroquine Sulfate (Plaquenil), 200 MG PO QAM Levothyroxine Sodium (Levothyroxine Sodium), 1 TAB PO QAM Loratadine (Claritin), 10 MG PO QAM Multiple Minerals W/ Vitamins (Calcium Citrate +), 1 TAB PO BID Multivitamin (Multivitamin), 1 TAB PO DAILY AFTERNOON Allergies Coded Allergies: No Known Allergies (Unverified , 02/17/18) Physical Exam Vital Signs Date Time Temp Pulse Resp B/P (MAP) Pulse Ox O2 Delivery O2 Flow Rate FiO2 02/17/18 05:30 75 17 133/87 100 02/17/18 04:33 79 16 119/83 99 Room Air 02/17/18 03:50 79 16 119/82 99 Room Air 02/17/18 02:31 36.5 87 16 135/89 99 Room Air Physical Exam GENERAL: alert, well appearing, well nourished, no distress, non-toxic HEAD: normal cephalic, large abrasion across forehead. EYE EXAM: normal conjunctiva, PERRL and EOM's grossly intact OROPHARYNX: no exudate, no erythema, lips, buccal mucosa, and tongue normal and mucous membranes are moist EARS: TMs clear b/l NECK: supple, no nuchal rigidity, no adenopathy, non-tender CHEST: stable to compression anteriorly and posteriorly LUNGS: clear to auscultation. Normal chest wall mechanics, no w/r/r HEART: no murmurs, S1 normal and S2 normal ABDOMEN: abdomen soft, non-tender, normo-active bowel sounds, no masses, no rebound or guarding. PELVIS: stable to compression anteriorly and posteriorly BACK: Back is symmetrical on inspection and there is no deformity, no midline tenderness, no CVA tenderness. UPPER EXTREMITIES: Mild edema and tenderness to palpation at the right third PIP. No obvious deformity. Mildly decreased ROM secondary to pain. No ecchymosis. Full active and passive range of motion of all other joints without tenderness to palpation. LOWER EXTREMITIES: full active and passive range of motion of all joints without tenderness to palpation NEURO EXAM: Normal sensorium, cranial nerves II-XII grossly intact, normal speech, no gross weakness of arms, no gross weakness of legs. GCS: 15. Medical Decision & Procedures ER Provider Diagnostic Interpretation: Radiology results have been interpreted by the radiologist and reviewed by me. R FINGER X-RAY: The results were interpreted by me. Small avulsion fracture in the third digit. CT HEAD: No intracranial hemorrhage, extra-axial fluid, midline shift or mass effect. No skull fracture. Questionable right frontal soft tissue swelling. Fluid posterior right maxillary sinus. Radiologist: Shahbaz Howe MD Study ready at 03:28 and initial results transmitted at 04:00. CT C SPINE: No acute traumatic injury or abnormal alignment of the cervical spine. There is cortical disruption of the spinous process at T1. There is an elongated spinous process at C7 with similar disruption at its mid section. ( Sagittal reformatted image 55). There is mild marginal irregularity at the disruption site with questionable early callus formation or nonunion appearance suggesting an indeterminate age. Please correlate with location of patient's pain. The lamina and posterior elements are otherwise intact without acute process. Probable intraosseous hemangioma C3. This is a presumed incidental finding. 2 mm anterolisthesis of C2 on C3 is presumed degenerative. Disc space narrowing with marginal hypertrophic osteophyte formation noted at C4-5 and C5-6 levels. Radiologist: Shahbaz Howe MD Study ready at 03:28 and initial results transmitted at 04:00. ED Course 0240: The patient was evaluated in room B7. A complete history and physical exam was performed. 0424: Upon reevaluation, the patient is feeling better. I discussed the findings and the treatment plan with the patient. She verbalizes agreement and understanding. The patient was discharged home. Medical Decision Differential diagnoses include major intracranial, cervical, spinal, thoracic, abdominal, pelvic and neurologic injury. Fracture, contusion, sprain, strain, laceration, abrasions included as well. Patient well-appearing here. Discussed with her precautions for close head injury and concussions. Discussed follow-up with orthopedics regarding small phalanx avulsion fracture to her nondominant hand. Discussed continue use of splint until healed and improved or otherwise directed by or so. The symptoms to watch and return for, follow-up with family doctor as a precaution. Discussed diet and hydration, eilq-rhi-ltpyilo pain medications, she verbalized understanding was agreeable to plan. I have a low suspicion for any additional occult traumatic injury. Medication Reconcilliation Current Medication List: was personally reviewed by me Blood Pressure Screening Patient's blood pressure: Normal blood pressure Blood pressure disposition: Did not require urgent referral Impression Primary Impression: Closed head injury Additional Impressions: Facial abrasion Fracture of phalanx of finger Scribe Attestation The scribe's documentation has been prepared under my direction and personally reviewed by me in its entirety. I confirm that the note above accurately reflects all work, treatment, procedures, and medical decision making performed by me. Departure Information Dispostion Home / Self-Care Referrals No Doctor, Assigned (PCP) Forms HOME CARE DOCUMENTATION FORM, IMPORTANT VISIT INFORMATION Patient Instructions My [facility] Additional Instructions Please wear the splint until your finger is healed and you are feeling better. Please have your family doctor or orthopedic surgeon recheck this in the interim. Please stay well-hydrated. You may use Tylenol or ibuprofen as needed for pain. If you have any worsening or persistent headaches, develop nausea or vomiting, dizziness, worsening neck or back pain, numbness or tingling , weakness in extremity, are unable to walk, or you have any other new or concerning symptoms, please return the emergency room. Problem Qualifiers Primary Impression: Closed head injury Encounter type: initial encounter Qualified Codes: S09.90XA - Unspecified injury of head, initial encounter Additional Impressions: Facial abrasion Encounter type: initial encounter Qualified Codes: S00.81XA - Abrasion of other part of head, initial encounter Fracture of phalanx of finger Encounter type: initial encounter Finger: middle finger Fracture type: closed Phalanx: middle Fracture alignment: nondisplaced Laterality: right Qualified Codes: S62.652A - Nondisplaced fracture of middle phalanx of right middle finger, initial encounter for closed fracture
[2018-02-17 05:30] VITALS: BP 133/87; PULSE 75; O2SAT 100
--- NOTE | 2018-02-17 06:47 | DIAGNOSTIC IMAGING REPORT ---
CT OF THE HEAD WITHOUT CONTRAST CLINICAL HISTORY: Trauma with head injury. COMPARISON STUDY: No previous studies for comparison. CT DOSE: 958.01 mGy.cm TECHNIQUE: Helical axial images of the head were obtained without IV contrast. Automated exposure control was utilized for the study. A dose lowering technique was utilized adhering to the principles of ALARA. FINDINGS: No acute intracranial hemorrhage, midline shift or mass effect is present. Ventricular system is normal. Basilar cisterns are patent. There are no extra-axial collections. Minimal white matter hypodensity suggests small vessel disease. There is no calvarial fracture. A right maxillary sinus air-fluid level is partially imaged on this exam. There may be a small left forehead contusion. IMPRESSION: 1. No acute intracranial findings. 2. No calvarial fracture. 3. Partially imaged right maxillary sinus air-fluid level. Electronically signed by: Damion Armendariz M.D. 02/17/2018 6:46 AM Dictated Date/Time: 02/17/2018 6:42 AM
--- NOTE | 2018-02-17 06:57 | DIAGNOSTIC IMAGING REPORT ---
R FINGER(S) MIN 2 VIEWS ROUTINE CLINICAL HISTORY: trauma, middle finger COMPARISON: None. FINDINGS: Note is made of an acute nondisplaced fracture within the palmar base of the middle phalanx of the right third finger. There are soft tissue swelling at the level of the PIP joint of the right third finger. A ring on the fourth finger is noted. There is severe arthritis of the right first carpometacarpal joint. IMPRESSION: Acute nondisplaced fracture within the palmar base of the middle phalanx of the right third finger. Electronically signed by: Damion Armendariz M.D. 02/17/2018 6:56 AM Dictated Date/Time: 02/17/2018 6:48 AM
--- NOTE | 2018-02-17 07:18 | DIAGNOSTIC IMAGING REPORT ---
CERVICAL SPINE CT CT DOSE: HISTORY: trauma, pain at C7/T1 TECHNIQUE: Multiaxial CT images of the cervical spine were performed and reformatted in the sagittal and coronal plane without the use of contrast. A dose lowering technique was utilized adhering to the principles of ALARA. COMPARISON: None. FINDINGS: Straightening of the cervical spine. No acute fractures identified. C3 vertebral body hemangioma. 2 mm of anterolisthesis of C3 on C4. Moderate degenerative disc disease with endplate osteophytes at C4-C5 and C5-C6. Small partially detached osteophyte at the anterior inferior endplate of C5. This is likely chronic. The spinous processes at C7 and T1 demonstrate nonunion at the tips. This is likely due to old trauma or chronic change with calcification of the nuchal ligament. Regardless, this is a nonacute finding. Prevertebral soft tissues and the C1-C2 interval are intact. The lung apices are clear. IMPRESSION: 1. No acute fracture identified within the cervical spine. 2. Degenerative changes and chronic versus old posttraumatic changes as described above. Electronically signed by: Nathaniel Montes M.D. 02/17/2018 7:17 AM Dictated Date/Time: 02/17/2018 7:10 AM
== END 2018-02-17 05:30 | disposition home or self-care (01) ==
LOC: C.EDB 02:23
DX: S00.81XA Abrasion of other part of head, initial encounter (principal); S62.652A Nondisplaced fracture of middle phalanx of right middle finger, initial encounter for closed fracture; W22.03XA Walked into furniture, initial encounter; E03.9 Hypothyroidism, unspecified; M35.00 Sjogren syndrome, unspecified; Z79.899 Other long term (current) drug therapy

== ENCOUNTER 2021-11-08 21:54 | Observation (INO) ==
[2021-11-08 22:25] LABS: Basophils # (auto) 0.02 K/uL (0-0.2); Basophils % (auto) 0.2 %; Eosinophils # (auto) 0.11 K/uL (0-0.5); Eosinophils % (auto) 1.1 %; Hemoglobin 11.8 g/dL (12.0-16.0); Immature Granulocytes # (auto) 0.01 K/uL (0.00-0.02); Immature Granulocytes % (auto) 0.1 %; Lymphocytes # (auto) 1.85 K/uL (1.2-3.4); Lymphocytes % (auto) 18.8 %; Mean Corpuscular Hemoglobin 32.1 pg (25-34); Mean Corpuscular Hgb Conc 32.8 g/dL (32-36); Mean Corpuscular Volume 97.8 fL (80-100); Mean Platelet Volume 9.1 fL (7.4-10.4); Monocytes # (auto) 1.18 K/uL (0.11-0.59); Neutrophils # (auto) 6.66 K/uL (1.4-6.5); Neutrophils % (auto) 67.8 %; Platelet Count 269 K/uL (130-400); RDW Coefficient of Variation 13.6 % (11.5-14.5); RDW Standard Deviation 48.5 fL (36.4-46.3); Red Blood Count 3.68 M/uL (4.2-5.4); White Blood Count 9.83 K/uL (4.8-10.8)
[2021-11-08 22:46] LABS: BUN Creatinine Ratio 28.3 (10-20); Calcium 8.8 mg/dl (8.5-10.1); Creatinine Clr Calc Pharmacy 62.1 ml/min; Est GFR (African American) 109.3 ml/min; Est GFR (Non-African American) 94.3 ml/min; Potassium 3.7 mmol/L (3.5-5.1)
[2021-11-08] MEDS ORDERED: AMPICILLIN/SULBACTAM SOD 3,000 MG in 0.9 % SODIUM CHLORIDE 100 ML IV STA (23:39)
--- NOTE | 2021-11-08 23:43 | Emergency Department Note ---
Impression & Plan Cellulitis of hand, right, Dog bite ED Provider Note CHIEF COMPLAINT: dog bite right hand HISTORY OF PRESENT ILLNESS: This 65-year-old female patient presents to the emergency department via private vehicle about 24 hours after they sustained a dog bite to the right hand. The patient is left-hand dominant.. The patient states she was taking her medications yesterday when a pill fell onto the floor. She was reaching down to pick it up so her dog did not get the pill, and the dog got startled and bit her right hand. The patient reports that the animal's immunizations are up-to-date. The patient complains of throbbing 3/10 pain at the site of the injury. Pain is worse with movement. Tetanus status is believed to be up to date. (Record check was completed in 2013) REVIEW OF SYSTEMS: A 6 system review of systems was completed with positives and pertinent negatives listed in the HPI. ALLERGIES: None PHYSICAL EXAM: Vital Signs reviewed, see Nurse's notes, vital signs stable. GENERAL: This is a 65-year-old white female, awake, alert, well appearing, no acute distress. Non toxic in appearance. MUSCULOSKELETAL: Examination of the right hand reveals a bite on the dorsum of the hand and a puncture wound on the volar aspect. There is moderate swelling on inspection. Palpation of the right hand reveals some tenderness. No significant crepitus or warmth noted. No joint space, tendon, or vascular involvement. Distal pulses intact. SKIN: Erythema and edema with tenderness extending from the proximal phalanx of the 2 through 4 digits to the mid forearm. Wound of the right hand as previously described. No active bleeding or discharge. NEURO: No sensory or motor deficits noted over all dermatomes and myotomes tested. HEART: Regular rate and rhythm without murmurs, gallops, rubs. LUNGS: CTA bilaterally without wheezes, rhonchi, rales EMERGENCY DEPARTMENT COURSE AND DECISION MAKING: I examined the patient. The patient presented with a bite wound as described as above. By the history, there is no concern for rabies exposure. Patient does clearly have a cellulitis which she reports has progressed since her arrival to the emergency department. IV access which is obtained, labs drawn. The patient was medicated with IV Unasyn. Given the quick progression of illness and cellulitis of the patient's hand, I do feel that she will benefit from inpatient care. The patient was agreeable. She will be admitted to the [facility] hospitalist service. Please see hospitalist dictation regarding ongoing management care of this patient. DIFFERENTIAL DIAGNOSIS: bite, scratch, rabies exposure, infection, cellulitis, DVT, abscess, among others. I attest that I have personally reviewed the patient's current medication list. Patient was found to have normal blood pressure on screening and does not require follow-up. The chart was completed utilizing [employer] voice recognition software. Grammatical errors, random word insertions, pronoun errors, and incomplete sentences are an occasional consequence of this system due to software limitations, ambient noise, and hardware issues. Any formal questions or concerns about the content, text, or information contained within the body of this dictation should be directly addressed to the provider for clarification. 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, 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 Hypothyroidism Megacolon Melanoma of ear Osteoporosis Parasomnia Postmenopausal atrophic vaginitis Sicca syndrome Sjoegren syndrome Sleep terror disorder Sleep walking Unintentional weight loss per pt 5lbs Surgical History History of cataract surgery History of dilation and curettage History of hysteroscopy History of Mohs micrographic surgery for skin cancer History of tubal ligation History of wisdom tooth extraction Hx of colonoscopy Status post pericardiocentesis Family History Sister Asthma Mother Lupus Family history of diabetes mellitus Father Grandmother (Maternal) Family history of diabetes mellitus Grandfather (Paternal) Family history of diabetes mellitus Other No family history of adverse response to anesthesia Denies family history of Ovarian cancer Prostate cancer Myocardial infarction Breast cancer Colorectal cancer Uterine cancer Social History Smoking Status: Never smoker Second Hand Exposure: No; Hx Alcohol Use: Yes Alcohol type: wine and other Alcohol Intake Frequency: Mo nthly or Less Hx Substance Use: No Preferred Language: Nepali Communication Ability: Effective 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 Beliefs That Will Affect Care: None marital status: Current Living Situation: Spouse current occupational status: retired Feels Safe at Home: Yes caffeine: Yes Dental Care, Regularly: Yes Physical Activity Frequency: Daily Seatbelt Use: always Sunscreen Use: Yes Assistive Devices: None Allergies Allergies Allergy/AdvReac Type Severity Reaction Status Date / Time No Known Allergies Allergy Verified 11/09/21 01:05 Home Meds Home Medications Medication Instructions Recorded Confirmed hydroxychloroquine 200 mg tablet 200 mg PO QAM tab 07/09/19 11/09/21 multivitamin (Daily Multi-Vitamin) 1 tab PO QPM 07/09/19 11/09/21 calcium carbonate 600 mg calcium 600 mg PO HS tab 07/14/19 11/09/21 (1,500 mg) tablet (Calcium) conjugated estrogens 0.625 mg/gram 0.625 mg PV 2XWK PRN 12/19/19 11/09/21 vaginal cream loratadine 10 mg capsule 10 mg PO DAILY PRN 12/19/19 11/09/21 glucosamine sulf dipot 1 cap PO HS 07/31/20 11/09/21 chlr,msm,chond 550 mg-C 30 mg-alexandra 1 mg capsule (Glucosamine Chondroitin) biotin 1 mg capsule 1 mg PO DAILY 06/25/21 11/09/21 tretinoin 0.1 % topical cream 1 applic TOPICAL HS 11/09/21 11/09/21 Previous Rx's Medication Instructions Recorded desipramine 100 mg tablet 100 mg PO HS #90 tab 06/07/21 clonazepam 0.5 mg tablet 0.25 mg PO HS #30 tab 09/03/21 levothyroxine 100 mcg tablet 100 mcg PO QAM #90 tab 09/09/21 (Synthroid) Results & Data (ED) Vital Signs Vital Signs - 24 hr 11/08/21 22:04 11/09/21 00:04 11/09/21 02:06 Temperature 36.6 C Temperature Source Temporal Artery Scan Pulse Rate 91 H Pulse Rate [Finger] 75 77 Respiratory Rate 16 20 20 Respiratory Effort / Characteristics Non-Labored Non-Labored Spontaneous Non-Labored Spontaneous Respiratory Depth Normal Normal Normal Blood Pressure 137/87 Blood Pressure [Right Arm] 130/82 137/87 Blood Pressure Mean 103 Blood Pressure Mean [Right Arm] 98 103 Pulse Oximetry 99 99 99 Oxygen Delivery Method Room Air Room Air Sepsis Recent Fever Within 48 Hours No Sepsis New/Unexplained Change in Mental Status N/A Sepsis Action Taken by Nursing No Action Required Laboratory Data Result diagrams: 11/08/21 22:15 11/08/21 22:15 Lab Results 11/08/21 11/08/21 11/09/21 Range/Units 22:15 22:15 01:02 WBC 9.83 (4.8-10.8) K/uL RBC 3.68 L (4.2-5.4) M/uL Hgb 11.8 L (12.0-16.0) g/dL Hct 36.0 L (37-47) % MCV 97.8 (80-100) fL MCH 32.1 (25-34) pg MCHC 32.8 (32-36) g/dL RDW Std Deviation 48.5 H (36.4-46.3) fL RDW Coeff of Mer 13.6 (11.5-14.5) % Plt Count 269 (130-400) K/uL MPV 9.1 (7.4-10.4) fL Immature Gran % (Auto) 0.1 % Neut % (Auto) 67.8 % Lymph % (Auto) 18.8 % [place] % (Auto) 12.0 % Eos % (Auto) 1.1 % Baso % (Auto) 0.2 % Neut # (Auto) 6.66 H (1.4-6.5) K/uL Lymph # (Auto) 1.85 (1.2-3.4) K/uL [place] # (Auto) 1.18 H (0.11-0.59) K/uL Eos # (Auto) 0.11 (0-0.5) K/uL Baso # (Auto) 0.02 (0-0.2) K/uL Immature Gran # (Auto) 0.01 (0.00-0.02) K/uL Sodium 137 (136-145) mmol/L Potassium 3.7 (3.5-5.1) mmol/L Chloride 105 (98-107) mmol/L Carbon Dioxide 26 (21-32) mmol/L Anion Gap 6 (3-11) BUN 17 (6-23) mg/dl Creatinine 0.60 (0.6-1.2) mg/dl Est Cr Clr Drug Dosing 62.1 ml/min Est GFR ( Amer) 109.3 ml/min Est GFR (Non-Af Amer) 94.3 ml/min BUN/Creatinine Ratio 28.3 H (10-20) Glucose 108 H (70-99(Fasting)) mg/dl Calcium 8.8 (8.5-10.1) mg/dl SARS-CoV-2, RNA, NAAT NEGATIVE (NEGATIVE) Administered Medications Discontinued Medications Ampicillin Sodium/Sulbactam Sodium 3,000 mg/ Sodium Chloride 108 mls @ 200 mls/hr IV NOW STA; Protocol Stop: 11/09/21 00:11 Last Infusion: 11/09/21 00:45 Dose: 0 mls/hr Documented by: [id number] Admin: 11/09/21 00:06 Dose: 200 mls/hr Documented by: [id number] Discharge Plan Visit Data Chief Complaint: Animal Bite Stated Complaint: DOG BITE ED Provider: Danae Whitlock ED Midlevel Provider: Nancy Rincon Discharge Problem: Cellulitis of hand, right, Dog bite Patient Disposition: Admitted As Inpatient Forms Stand Alone Forms: [facility] Prescriptions Prescriptions: No Action desipramine 100 mg tablet 100 mg PO HS Qty: 90 RF: 1 clonazepam 0.5 mg tablet 0.25 mg PO HS Qty: 30 RF: 3 levothyroxine [Synthroid] 100 mcg tablet 100 mcg PO QAM Qty: 90 RF: 1 hydroxychloroquine 200 mg tablet 200 mg PO QAM RF: 0 multivitamin [Daily Multi-Vitamin] tablet 1 tab PO QPM RF: 0 biotin 1 mg capsule 1 mg PO DAILY RF: 0 calcium carbonate [Calcium 600] 600 mg calcium (1,500 mg) tablet 600 mg PO HS RF: 0 loratadine 10 mg capsule 10 mg PO DAILY PRN (Reason: Allergy Symptoms) RF: 0 conjugated estrogens 0.625 mg/gram cream 0.625 mg PV 2XWK PRN (Reason: dryness) RF: 0 Glucosamine Chondroitin 550-30-1 mg Capsule 1 cap PO HS RF: 0 tretinoin 0.1 % cream 1 applic TOPICAL HS RF: 0 Referrals Referrals: Marysol Gutiérrez MD [Primary Care Provider] -
--- NOTE | 2021-11-09 01:34 | History & Physical Report ---
Date of Service November 09, 2021 Assessment & Plan (1) Dog bite: Plan: 65yo female presenting with dog bite of her RUE appx 30 hours ago. Dog is her pet, UTD on vaccines. Patient is UTD with her tetanus vaccinations. She notes worsening edema and extension of erythema tonight which is why she came to the ER. No systemic signs or symptoms of infection. Laboratory studies are within normal limits. -Observation to medical -Continue Unasyn 3gm IV q 6 hours - can most likely be discharged later today with Augmentin -Wound care -Monitor redness of extremity for extension -Tylenol as needed -Elevate extremity (2) Sjoegren syndrome: Plan: Chronic. Well controlled with medication -Continue Hydroxychloroquine (3) Depression: Plan: Chronic. Stable on medication -Continue Desipramine 100mg po qHS -Continue Clonazepam 0.25mg po qHS (4) Hypothyroidism: Plan: Chronic. Stable on medication. Last TSH on 09/24/21 = 1.58 -Continue Synthroid 100mcg po daily Plan: F/E/N - Heplock. Electrolytes WNL. Regular diet as tolerated Ppx - Low risk for DVT Code - Full per discussion with patient Dispo - Observation to medical History of Present Illness Chief Complaint: dog bite Primary Care Provider: Marysol Gutiérrez MD Shira Thompson is a pleasant 65yo female with history of depression, Sjogren syndrome presenting with a dog bite to the right hand. Patient was taking her evening medications on 11/07/21 PM. She dropped a pill and reached down to get it. She startled the dog and got bitten on the right hand. She immediately cleaned the wound and used Hibiclens and triple antibiotic ointment. The dog is a dauschaund, up to date on his vaccines and is in good health. Patient is UTD on tetanus vaccination - received in 2013. She has noted progressive redness and swelling which prompted her to come to the ER. Her hand feels stiff but she does not have much pain in the hand. She denies fever, chills, nausea, malaise. Additionally, denies abdominal pain, diarrhea, cough, chest pain, SOB. In the ER she is afebrile, HD stable. She was administered 3gm Unasyn. Reports the redness of her forearm is beginning to recede. ER Course: Unasyn Allergies Allergy/AdvReac Type Severity Reaction Status Date / Time No Known Allergies Allergy Verified 11/09/21 01:05 Home Medications Medication Instructions Recorded Confirmed Type hydroxychloroquine 200 mg tablet 200 mg PO QAM tab 07/09/19 11/09/21 History multivitamin (Daily Multi-Vitamin) 1 tab PO QPM 07/09/19 11/09/21 History calcium carbonate 600 mg calcium 600 mg PO HS tab 07/14/19 11/09/21 History (1,500 mg) tablet (Calcium) conjugated estrogens 0.625 mg/gram 0.625 mg PV 2XWK PRN 12/19/19 11/09/21 History vaginal cream loratadine 10 mg capsule 10 mg PO DAILY PRN 12/19/19 11/09/21 History glucosamine sulf dipot 1 cap PO HS 07/31/20 11/09/21 History chlr,msm,chond 550 mg-C 30 mg-alexandra 1 mg capsule (Glucosamine Chondroitin) desipramine 100 mg tablet 100 mg PO HS #90 tab 06/07/21 11/09/21 Rx biotin 1 mg capsule 1 mg PO DAILY 06/25/21 11/09/21 History clonazepam 0.5 mg tablet 0.25 mg PO HS #30 tab 09/03/21 11/09/21 Rx levothyroxine 100 mcg tablet 100 mcg PO QAM #90 tab 09/09/21 11/09/21 Rx (Synthroid) tretinoin 0.1 % topical cream 1 applic TOPICAL HS 11/09/21 11/09/21 History Past Med/Surg History Medical History Depression History of anemia History of pericarditis x2 episodes at age 55yrs old--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, 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 Hypothyroidism Megacolon Melanoma of ear Osteoporosis Parasomnia Postmenopausal atrophic vaginitis Sicca syndrome Sjoegren syndrome Sleep terror disorder Sleep walking Unintentional weight loss per pt 5lbs Surgical History History of cataract surgery History of dilation and curettage History of hysteroscopy History of Mohs micrographic surgery for skin cancer History of tubal ligation History of wisdom tooth extraction Hx of colonoscopy Status post pericardiocentesis Family History Sister Asthma Mother Lupus Family history of diabetes mellitus Father Grandmother (Maternal) Family history of diabetes mellitus Grandfather (Paternal) Family history of diabetes mellitus Other No family history of adverse response to anesthesia Denies family history of Ovarian cancer Prostate cancer Myocardial infarction Breast cancer Colorectal cancer Uterine cancer Social History Smoking Status: Never smoker Second Hand Exposure: No; Hx Alcohol Use: Yes Alcohol type: wine and other Alcohol Intake Frequency: Monthly or Less Hx Substance Use: No Preferred Language: Armenian Communication Ability: Effective Log Feeder Required: No Beliefs That Will Affect Care: None marital status: Current Living Situation: Spouse current occupational status: retired Feels Safe at Home: Yes caffeine: Yes Dental Care, Regularly: Yes Physical Activity Frequency: Daily Seatbelt Use: always Sunscreen Use: Yes Assistive Devices: None Review of Systems Review of Systems: All systems reviewed & are unremarkable except as noted in HPI & below Physical Exam Physical Exam: General: patient resting comfortably, NAD, non-toxic in appearance, AA&O x 4 Skin: right hand with puncture wound on hypothenar eminence, puncture wound on dorsum with warmth, redness and edema. Redness extends appx 1/[address] up forearm. No lymphangitic streaking, crepitus, bullae or proximal pain. HEENT: NC/AT, PERRL, EOMI, anicteric sclera, conjunctiva without injection, external ear normal to inspection and nontender, nares patent, moist mucus membranes, dentition intact, no oropharyngeal lesions, neck supple, trachea midline, no LAD, no thyromegaly, no JVD Heart: +S1/S2, regular, no m/r/g Lungs: equal air entry bilaterally, no rales/rhonchi/wheezes Abd: +BS, soft, NT/ND, no masses/organomegaly/ascites Ext: warm, 2+ pulses in UE/LE bilaterally, no clubbing/cyanosis, right hand as above Neuro: nonfocal, patient AA&O x 4, speech intact, no facial droop, moving all extremities on command with equal strength 5/5 Results & Data Results & Data ([facility]) Vital Signs (Past 12 Hours) Vital Signs Temp Pulse Pulse Resp BP BP Pulse Ox 11/09/21 00:04 75 20 130/82 99 11/08/21 22:04 36.6 C 91 H 16 137/87 99 Laboratory Results Laboratory Results WBC 9.83 K/uL (4.8-10.8) 11/08/21 22:15 RBC 3.68 M/uL (4.2-5.4) L 11/08/21 22:15 Hgb 11.8 g/dL (12.0-16.0) L 11/08/21 22:15 Hct 36.0 % (37-47) L 11/08/21 22:15 MCV 97.8 fL (80-100) 11/08/21 22:15 MCH 32.1 pg (25-34) 11/08/21 22:15 MCHC 32.8 g/dL (32-36) 11/08/21 22:15 RDW Std Deviation 48.5 fL (36.4-46.3) H 11/08/21 22:15 RDW Coeff of Mer 13.6 % (11.5-14.5) 11/08/21 22:15 Plt Count 269 K/uL (130-400) 11/08/21 22:15 MPV 9.1 fL (7.4-10.4) 11/08/21 22:15 Immature Gran % (Auto) 0.1 % 11/08/21 22:15 Neut % (Auto) 67.8 % 11/08/21 22:15 Lymph % (Auto) 18.8 % 11/08/21 22:15 [place] % (Auto) 12.0 % 11/08/21 22:15 Eos % (Auto) 1.1 % 11/08/21 22:15 Baso % (Auto) 0.2 % 11/08/21 22:15 Neut # (Auto) 6.66 K/uL (1.4-6.5) H 11/08/21 22:15 Lymph # (Auto) 1.85 K/uL (1.2-3.4) 11/08/21 22:15 [place] # (Auto) 1.18 K/uL (0.11-0.59) H 11/08/21 22:15 Eos # (Auto) 0.11 K/uL (0-0.5) 11/08/21 22:15 Baso # (Auto) 0.02 K/uL (0-0.2) 11/08/21 22:15 Immature Gran # (Auto) 0.01 K/uL (0.00-0.02) 11/08/21 22:15 Sodium 137 mmol/L (136-145) 11/08/21 22:15 Potassium 3.7 mmol/L (3.5-5.1) 11/08/21 22:15 Chloride 105 mmol/L (98-107) 11/08/21 22:15 Carbon Dioxide 26 mmol/L (21-32) 11/08/21 22:15 Anion Gap 6 (3-11) 11/08/21 22:15 BUN 17 mg/dl (6-23) 11/08/21 22:15 Creatinine 0.60 mg/dl (0.6-1.2) 11/08/21 22:15 Est Cr Clr Drug Dosing 62.1 ml/min 11/08/21 22:15 Est GFR ( Amer) 109.3 ml/min 11/08/21 22:15 Est GFR (Non-Af Amer) 94.3 ml/min 11/08/21 22:15 BUN/Creatinine Ratio 28.3 (10-20) H 11/08/21 22:15 Glucose 108 mg/dl (70-99(Fasting)) H 11/08/21 22:15 Calcium 8.8 mg/dl (8.5-10.1) 11/08/21 22:15 SARS-CoV-2, RNA, NAAT NEGATIVE (NEGATIVE) 11/09/21 01:02 PG Care Time/CCT Total # of Minutes Spent Total Time Spent with Patient: Total time spent is greater than 50% in coordination of care (as documented) at patient's floor/unit and/or counseling patient: Coding Level of Care Code INT OBSERVATION CARE 50M LVL 2 Diagnoses Dog bite W54.0XXA Sjoegren syndrome M35.00 Depression F32.9 Hypothyroidism E03.9
[2021-11-09] MEDS ORDERED: ACETAMINOPHEN 325 MG TAB PO PRN (03:41)
[2021-11-09] MEDS: LEVOTHYROXINE SODIUM 100 MCG TABLET PO SCH (05:58)
[2021-11-09] MEDS: AMPICILLIN/SULBACTAM SOD 3,000 MG in 0.9 % SODIUM CHLORIDE 100 ML IV SCH ×4 (05:59→23:49)
--- NOTE | 2021-11-09 06:43 | Emergency Department Note ---
ED Visit Note I saw this patient in conjunction with Nancy Rincon PA-C. I agree with her decision making and treatment plan. The right hand has a dog bite that has now become infected with significant lymphangitic spread and cellulitis. Patient will require admission to the hospital for IV antibiotics and close monitoring. . : Dog bite Qualifiers: Encounter type: initial encounter Qualified Code(s): W54.0XXA - Bitten by dog, initial encounter
[2021-11-09] MEDS: HYDROXYCHLOROQUINE SULFATE 200 MG TAB PO SCH (10:22)
--- NOTE | 2021-11-09 11:24 | XRay Report ---
RIGHT HAND 3 VIEWS HISTORY: Right hand pain, dog bite COMPARISON: Right finger radiograph 02/14/2018. FINDINGS: Soft tissue swelling within the dorsum of the right hand. No fracture or dislocation. Sever e degenerative changes at the first carpometacarpal joint. The bones are osteopenic. No radiopaque fo reign bodies. IMPRESSION: Soft tissue swelling within the dorsum of the right hand. No fractures. ACT 112: Negative or not required by law. Electronically signed by: Nathaniel Montes M.D. 11/09/2021 11:22 AM
--- NOTE | 2021-11-09 14:07 | Orthopedic Consultation ---
Date of Consultation November 09, 2021 Assessment & Plan (1) Cellulitis of hand, right: At this time would plan to just continue to treat the cellulitis from her dog bite. Her dressings were changed and reapplied. Encouraged elevation of her right upper extremity. Agree with IV Unasyn. We will continue to monitor. Encouraged range of motion of her fingers of her right hand. She asked if she could go home today but would recommend monitoring for maybe a couple of more days. We will see how this responds overnight. She understands and agrees with the plan. Dr. Pederson present for today's visit. Present on Admission?: Yes Supervising Physician Co-Signing Physician Notes I, Dr. Pederson, saw and examined the patient, with my PA, and discussed the management with my PA. I reviewed my PAs note and agree with the documented findings and the plan of care I developed. History of Present Illness Reason for Consultation: right hand dog bite, redness and swelling. Attending Physician: Shira De Oliveira MD History of Present Illness 65yo female presenting to the ED with dog bite of her RUE approximately 30 hours ago. Dog is her pet, UTD on vaccines. Patient is UTD with her tetanus vaccinations. She notes worsening edema and extension of erythema tonight, which is why she came to the ER. No systemic signs or symptoms of infection. Admitted by Medicine. No complaints of pain in her right hand, just "feels swollen". She would like to go home. Currently on IV Unasyn. Denies any other injuries. Denies numbness or tingling in her right hand. Able to move her fingers. Allergies Allergy/AdvReac Type Severity Reaction Status Date / Time No Known Allergies Allergy Verified 11/09/21 01:05 Home Medications Medication Instructions Recorded Confirmed Type hydroxychloroquine 200 mg tablet 200 mg PO QAM tab 07/09/19 11/09/21 History multivitamin (Daily Multi-Vitamin) 1 tab PO QPM 07/09/19 11/09/21 History calcium carbonate 600 mg calcium 600 mg PO HS tab 07/14/19 11/09/21 History (1,500 mg) tablet (Calcium) conjugated estrogens 0.625 mg/gram 0.625 mg PV 2XWK PRN 12/19/19 11/09/21 History vaginal cream loratadine 10 mg capsule 10 mg PO DAILY PRN 12/19/19 11/09/21 History glucosamine sulf dipot 1 cap PO HS 07/31/20 11/09/21 History chlr,msm,chond 550 mg-C 30 mg-alexandra 1 mg capsule (Glucosamine Chondroitin) desipramine 100 mg tablet 100 mg PO HS #90 tab 06/07/21 11/09/21 Rx biotin 1 mg capsule 1 mg PO DAILY 06/25/21 11/09/21 History clonazepam 0.5 mg tablet 0.25 mg PO HS #30 tab 09/03/21 11/09/21 Rx levothyroxine 100 mcg tablet 100 mcg PO QAM #90 tab 09/09/21 11/09/21 Rx (Synthroid) tretinoin 0.1 % topical cream 1 applic TOPICAL HS 11/09/21 11/09/21 History Patient History Medical History Depression History of anemia History of pericarditis x2 episodes at age 55yrs old--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, 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 Hypothyroidism Megacolon Melanoma of ear Osteoporosis Parasomnia Postmenopausal atrophic vaginitis Sicca syndrome Sjoegren syndrome Sleep terror disorder Sleep walking Unintentional weight loss per pt 5lbs Surgical History History of cataract surgery bilt History of dilation and curettage History of hysteroscopy with resection for intrauterine polyp removal History of Mohs micrographic surgery for skin cancer History of tubal ligation History of wisdom tooth extraction Hx of colonoscopy Status post pericardiocentesis Family History Sister Asthma Mother Lupus Family history of diabetes mellitus Father Grandmother (Maternal) Family history of diabetes mellitus Grandfather (Paternal) Family history of diabetes mellitus Other No family history of adverse response to anesthesia Denies family history of Ovarian cancer Prostate cancer Myocardial infarction Breast cancer Colorectal cancer Uterine cancer Social History Smoking Status: Never smoker Second Hand Exposure: No; Hx Alcohol Use: Yes Alcohol type: other Alcohol Intake Frequency: Monthly or Less Hx Substance Use: No Preferred Language: Greek Communication Ability: Effective 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 Physical Exam Musculoskeletal: Exam of right upper extremity: She has dorsal erythema and swelling of her right hand. She has an irregularly shaped laceration/abrasion to the dorsum of her right hand. She also may have a punctate wound on the ulnar surface of her palm. There is near erythema at the dorsum of her hand down into the back of her wrist, And to the base of her fingers. There is no erythema over the PIP or DIP joints of her fingers. She has full flexion extension of all of her fingers. Distal sensation is normal. Capillary fill is brisk. Her thumb is also nontender. She has no tenderness throughout her fingers. She has no discomfort with active and passive range of motion of her right wrist. She is mildly tender with palpation of the dorsum of her hand over the bite amita. There is no active bleeding or purulence able to be expressed from the wound. There is no surrounding fluctuance or seroma. Results & Data ([facility]) Vital Signs (Past 12 Hours) Vital Signs Temp Pulse Pulse Resp BP BP Pulse Ox 11/09/21 07:39 36.7 C 79 20 126/80 100 11/09/21 02:45 36.8 C 77 18 127/80 100 11/09/21 02:06 77 20 137/87 99 Laboratory Results 11/09/21 11/09/21 11/08/21 Range/Units 05:45 01:02 22:15 WBC (4.8-10.8) K/uL RBC (4.2-5.4) M/uL Hgb (12.0-16.0) g/dL Hct (37-47) % MCV (80-100) fL MCH (25-34) pg MCHC (32-36) g/dL RDW Std Deviation (36.4-46.3) fL RDW Coeff of Mer (11.5-14.5) % Plt Count (130-400) K/uL MPV (7.4-10.4) fL Immature Gran % (Auto) % Neut % (Auto) % Lymph % (Auto) % [place] % (Auto) % Eos % (Auto) % Baso % (Auto) % Neut # (Auto) (1.4-6.5) K/uL Lymph # (Auto) (1.2-3.4) K/uL [place] # (Auto) (0.11-0.59) K/uL Eos # (Auto) (0-0.5) K/uL Baso # (Auto) (0-0.2) K/uL Immature Gran # (Auto) (0.00-0.02) K/uL Sodium 137 (136-145) mmol/L Potassium 3.7 (3.5-5.1) mmol/L Chloride 105 (98-107) mmol/L Carbon Dioxide 26 (21-32) mmol/L Anion Gap 6 (3-11) BUN 17 (6-23) mg/dl Creatinine 0.60 (0.6-1.2) mg/dl Est Cr Clr Drug Dosing 62.1 ml/min Est GFR ( Amer) 109.3 ml/min Est GFR (Non-Af Amer) 94.3 ml/min BUN/Creatinine Ratio 28.3 H (10-20) Glucose 108 H (70-99(Fasting)) mg/dl Calcium 8.8 (8.5-10.1) mg/dl Hepatitis C Ab Screen Pending SARS-CoV-2, RNA, NAAT NEGATIVE (NEGATIVE) 11/08/21 Range/Units 22:15 WBC 9.83 (4.8-10.8) K/uL RBC 3.68 L (4.2-5.4) M/uL Hgb 11.8 L (12.0-16.0) g/dL Hct 36.0 L (37-47) % MCV 97.8 (80-100) fL MCH 32.1 (25-34) pg MCHC 32.8 (32-36) g/dL RDW Std Deviation 48.5 H (36.4-46.3) fL RDW Coeff of Mer 13.6 (11.5-14.5) % Plt Count 269 (130-400) K/uL MPV 9.1 (7.4-10.4) fL Immature Gran % (Auto) 0.1 % Neut % (Auto) 67.8 % Lymph % (Auto) 18.8 % [place] % (Auto) 12.0 % Eos % (Auto) 1.1 % Baso % (Auto) 0.2 % Neut # (Auto) 6.66 H (1.4-6.5) K/uL Lymph # (Auto) 1.85 (1.2-3.4) K/uL [place] # (Auto) 1.18 H (0.11-0.59) K/uL Eos # (Auto) 0.11 (0-0.5) K/uL Baso # (Auto) 0.02 (0-0.2) K/uL Immature Gran # (Auto) 0.01 (0.00-0.02) K/uL Sodium (136-145) mmol/L Potassium (3.5-5.1) mmol/L Chloride (98-107) mmol/L Carbon Dioxide (21-32) mmol/L Anion Gap (3-11) BUN (6-23) mg/dl Creatinine (0.6-1.2) mg/dl Est Cr Clr Drug Dosing ml/min Est GFR ( Amer) ml/min Est GFR (Non-Af Amer) ml/min BUN/Creatinine Ratio (10-20) Glucose (70-99(Fasting)) mg/dl Calcium (8.5-10.1) mg/dl Hepatitis C Ab Screen SARS-CoV-2, RNA, NAAT (NEGATIVE) Diagnostic Findings RIGHT HAND 3 VIEWS HISTORY: Right hand pain, dog bite COMPARISON: Right finger radiograph 02/14/2018. FINDINGS: Soft tissue swelling within the dorsum of the right hand. No fracture or dislocation. Severe degenerative changes at the first carpometacarpal joint. The bones are osteopenic. No radiopaque foreign bodies. IMPRESSION: Soft tissue swelling within the dorsum of the right hand. No fractures.
--- NOTE | 2021-11-09 16:47 | Hospitalist Progress Note ---
Date of Service November 09, 2021 Assessment & Plan (1) Dog bite: Plan: (1) Dog bite: Plan: 65yo female presenting with dog bite of her RUE appx 48 hours ago. Dog is her pet, UTD on vaccines. Patient is UTD with her tetanus vaccinations. She has received 1 days worth of antibiotics and patient has noticed improvement in swelling and erythema. Continues to have no systemic symptoms. Patient is clinically stable. -Consult orthopedic surgery, recommendations appreciated. -Ortho recommends continuing Unasyn and observing patient for a couple of days, no concern for active tenosynovitis at this time, Ortho will continue to follow per their note -Continue Unasyn 3gm IV q 6 hours, when Ortho feels it is safe for her to be discharged, transition to Augmentin. -Wound care, change dressing twice a day -Monitor erythema daily for extension of disease -Tylenol as needed -Elevate extremity when able (2) Sjoegren syndrome: Plan: Chronic. Well controlled with medication -Continue Hydroxychloroquine (3) Depression: Plan: Chronic. Stable on medication -Continue Desipramine 100mg po qHS -Continue Clonazepam 0.25mg po qHS (4) Hypothyroidism: Plan: Chronic. Stable on medication. Last TSH on 09/24/21 = 1.58 -Continue Synthroid 100mcg po daily F/E/N - Heplock. Electrolytes WNL. Regular diet as tolerated Ppx - Low risk for DVT Code - Full per discussion with patient Dispo - Observation to medical (2) Cellulitis of hand, right: Admission and Anticipated Discharge Date Admission Date: November 09, 2021 Supervising Physician Co-Signing Physician Notes Resident Physician Supervision Note: I independently interviewed and examined the patient and verified the hwang history and physical, reviewed labs and image studies and agree with resident Dr. Gómez findings and care plan. Subjective Patient seen at bedside this morning. No acute events reported overnight. Patient seems to be doing well overall. She is eating breakfast in bed without difficulty. Patient denies any fevers, chills, chest pain, shortness of breath, nausea, or vomiting. Patient does report that she thinks the swelling and erythema on her hand has improved a little bit since being put on antibiotics. Patient would like to go home if possible but discussed with her that she needs to be seen by Ortho before any decisions can be made regarding her disposition. Otherwise patient states that she feels well and has no other complaints at this time. Review of Systems Review of Systems: All systems reviewed & are unremarkable except as noted in HPI & below Physical Exam Physical Exam: General: patient resting comfortably, NAD, non-toxic in appearance, alert and oriented x3 Skin: right hand with puncture wound on hypothenar eminence, puncture wound on dorsum with warmth, redness and edema. Redness extends to just proximal to wrist. No lymphatic streaking, crepitus, bullae or proximal pain. HEENT: NC/AT, PERRL, EOMI, anicteric sclera, conjunctiva without injection, external ear normal to inspection and nontender, nares patent, moist mucus membranes, dentition intact, no oropharyngeal lesions, neck supple, trachea midline, no LAD, no thyromegaly, no JVD Heart: Regular rate and rhythm without murmur rub or gallop auscultated. Lungs: equal air entry bilaterally, no wheezes rales or rhonchi Abd: Normal bowel sounds auscultated in all 4 quadrants Ext: warm, 2+ pulses in UE/LE bilaterally, no clubbing/cyanosis, right hand as above Neuro: Patient moves all 4 limbs. Sensation intact distal to puncture wound on right hand Results & Data Results & Data ([facility]) Vital Signs (Past 12 Hours) Vital Signs Temp Pulse Resp BP Pulse Ox 11/09/21 15:58 36.9 C 83 16 121/73 96 11/09/21 07:39 36.7 C 79 20 126/80 100 Resident Activity Tracking Resident Involvement: Resident Care Provided Care Provided: Adult Hospital Medicine (1) Dog bite Encounter type: initial encounter Qualified Code(s): W54.0XXA - Bitten by dog, initial encounter
[2021-11-09] MEDS ORDERED: DESIPRAMINE HCL 50 MG TAB PO SCH (21:00)
[2021-11-09] MEDS ORDERED: clonazePAM 0.25 MG TAB PO SCH ×2 (21:00)
[2021-11-10] MEDS: LEVOTHYROXINE SODIUM 100 MCG TABLET PO SCH (05:31)
[2021-11-10] MEDS: AMPICILLIN/SULBACTAM SOD 3,000 MG in 0.9 % SODIUM CHLORIDE 100 ML IV SCH ×2 (05:31→11:48)
[2021-11-10] MEDS: HYDROXYCHLOROQUINE SULFATE 200 MG TAB PO SCH (09:06)
[2021-11-10 09:53] LABS: Basophils # (auto) 0.03 K/uL (0-0.2); Basophils % (auto) 0.3 %; Eosinophils # (auto) 0.12 K/uL (0-0.5); Eosinophils % (auto) 1.2 %; Hematocrit (blood only) 39.2 % (37-47); Hemoglobin 12.8 g/dL (12.0-16.0); Immature Granulocytes # (auto) 0.01 K/uL (0.00-0.02); Immature Granulocytes % (auto) 0.1 %; Lymphocytes # (auto) 1.18 K/uL (1.2-3.4); Lymphocytes % (auto) 11.5 %; Mean Corpuscular Hemoglobin 32.2 pg (25-34); Mean Corpuscular Hgb Conc 32.7 g/dL (32-36); Mean Corpuscular Volume 98.5 fL (80-100); Mean Platelet Volume 9.1 fL (7.4-10.4); Monocytes # (auto) 1.41 K/uL (0.11-0.59); Monocytes % (auto) 13.7 %; Neutrophils # (auto) 7.53 K/uL (1.4-6.5); Neutrophils % (auto) 73.2 %; Platelet Count 267 K/uL (130-400); RDW Coefficient of Variation 13.8 % (11.5-14.5); RDW Standard Deviation 49.7 fL (36.4-46.3); Red Blood Count 3.98 M/uL (4.2-5.4); White Blood Count 10.28 K/uL (4.8-10.8)
[2021-11-10 10:15] LABS: BUN Creatinine Ratio 23.5 (10-20); Calcium 8.8 mg/dl (8.5-10.1); Est GFR (African American) 104.2 ml/min; Est GFR (Non-African American) 89.9 ml/min
--- NOTE | 2021-11-10 12:59 | Orthopedic Progress Note ---
Date of Service November 10, 2021 Assessment & Plan (1) Cellulitis of hand, right: Plan: Cellulitis from dog bite right hand Responding to IV unasyn. Improved today. Dressings changed right hand. Advised to keep wounds clean and covered. May wash with soap and water. Recommend transition to oral antibiotics. Elevate right hand above your heart to relieve pain/swelling. Allowed for full ROM of fingers right hand. Okay from ortho standpoint for discharge to home on oral antibiotics when okay from primary service. Recommend calling tomorrow for an appointment to be seen this week for a recheck. She understands and agrees with the plan. All questions answered. Dr. Pederson present for visit today. Admission and Anticipated Discharge Date Admission Date: November 09, 2021 Supervising Physician Co-Signing Physician Notes I, Dr. Pederson, saw and examined the patient and discussed the management with my PA. I reviewed my PAs note and agree with the documented findings and the plan of care I developed. Subjective Patient feel good today, eating lunch. States hand is less stiff, but still notes some swelling. Denies numbness or tingling or pain in right hand. Physical Exam Musculoskeletal: Dressings right wrist/hand removed, no fluctuance or palpable pockets of fluid. Laceration/wound healing nicely. Surrounding erythema, but positive wrinkles, less edema on the dorsum of her right hand. Full flexion and extension of her fingers, cap refill brisk. Tolerates ROM of the right wrist and no wrist effusion. palmar wound with no active drainage, surrounding erythema or tenderness. Hand is nontender to palpation today. Results & Data ([facility]) Vital Signs (Past 12 Hours) Vital Signs Temp Pulse Resp BP Pulse Ox 11/10/21 07:27 36.8 C 84 18 120/79 99 Laboratory Results 11/10/21 11/10/21 Range/Units 09:38 09:38 WBC 10.28 (4.8-10.8) K/uL RBC 3.98 L (4.2-5.4) M/uL Hgb 12.8 (12.0-16.0) g/dL Hct 39.2 (37-47) % MCV 98.5 (80-100) fL MCH 32.2 (25-34) pg MCHC 32.7 (32-36) g/dL RDW Std Deviation 49.7 H (36.4-46.3) fL RDW Coeff of Mer 13.8 (11.5-14.5) % Plt Count 267 (130-400) K/uL MPV 9.1 (7.4-10.4) fL Immature Gran % (Auto) 0.1 % Neut % (Auto) 73.2 % Lymph % (Auto) 11.5 % [place] % (Auto) 13.7 % Eos % (Auto) 1.2 % Baso % (Auto) 0.3 % Neut # (Auto) 7.53 H (1.4-6.5) K/uL Lymph # (Auto) 1.18 L (1.2-3.4) K/uL [place] # (Auto) 1.41 H (0.11-0.59) K/uL Eos # (Auto) 0.12 (0-0.5) K/uL Baso # (Auto) 0.03 (0-0.2) K/uL Immature Gran # (Auto) 0.01 (0.00-0.02) K/uL Sodium 135 L (136-145) mmol/L Potassium 4.0 (3.5-5.1) mmol/L Chloride 106 (98-107) mmol/L Carbon Dioxide 22 (21-32) mmol/L Anion Gap 7 (3-11) BUN 16 (6-23) mg/dl Creatinine 0.68 (0.6-1.2) mg/dl Est Cr Clr Drug Dosing 54.0 ml/min Est GFR ( Amer) 104.2 ml/min Est GFR (Non-Af Amer) 89.9 ml/min BUN/Creatinine Ratio 23.5 H (10-20) Glucose 100 H (70-99(Fasting)) mg/dl Calcium 8.8 (8.5-10.1) mg/dl
--- NOTE | 2021-11-10 15:24 | Discharge Summary ---
Date of Service November 10, 2021 Admission HPI Per Admitting Provider Shira Thompson is a pleasant 65yo female with history of depression, Sjogren syndrome presenting with a dog bite to the right hand. Patient was taking her evening medications on 11/07/21 PM. She dropped a pill and reached down to get it. She startled the dog and got bitten on the right hand. She immediately cleaned the wound and used Hibiclens and triple antibiotic ointment. The dog is a dauschaund, up to date on his vaccines and is in good health. Patient is UTD on tetanus vaccination - received in 2013. She has noted progressive redness and swelling which prompted her to come to the ER. Her hand feels stiff but she does not have much pain in the hand. She denies fever, chills, nausea, malaise. Additionally, denies abdominal pain, diarrhea, cough, chest pain, SOB. In the ER she is afebrile, HD stable. She was administered 3gm Unasyn. Reports the redness of her forearm is beginning to recede. ER Course: Unasyn Principal Diagnosis Cellulitis secondary to dog bite Discharge Exam General: patient resting comfortably, NAD, non-toxic in appearance, alert and oriented x3 Skin: right hand with puncture wound on hypothenar eminence, puncture wound on dorsum with warmth, redness and edema. Much improved erythema and swelling compared to yesterday on right hand. HEENT: PERRL, atraumatic skull, anicteric sclera Heart: Regular rate and rhythm without murmur rub or gallop auscultated. Lungs: equal air entry bilaterally, no wheezes rales or rhonchi Abd: Normal bowel sounds auscultated in all 4 quadrants Ext: warm, 2+ pulses in UE/LE bilaterally, no clubbing/cyanosis, right hand as above Neuro: Patient moves all 4 limbs. Sensation intact distal to puncture wound on right hand Discharge Data Allergies Allergy/AdvReac Type Severity Reaction Status Date / Time No Known Allergies Allergy Verified 11/09/21 01:05 Consultations 11/09/21 01:12 ED Decision to Admit Stat 11/09/21 09:38 Consult Orthopedic Surgery Routine Hospital Course (1) Dog bite: (1) Dog bite: Plan: 65yo female presenting with dog bite of her RUE appx 48 hours ago. Dog is her pet, UTD on vaccines. Patient is UTD with her tetanus vaccinations. She has received 2 days worth of antibiotics and patient has noticed improvement in swelling and erythema. Continues to have no systemic symptoms. Patient is clinically stable. -Consulted orthopedic surgery, recommendations appreciated. -Ortho recommends continuing Unasyn and observing patient for a couple of days, no concern for active tenosynovitis on 11/09/21, Ortho feels comfortable with discharge today. -Transition from Unasyn to Augmentin for an additional 8 days for total antibiotic course of 10 days. -Wound care, change dressing twice a day -Monitor erythema daily for extension of disease -Tylenol as needed -Elevate extremity when able -Discharge today with follow-up with orthopedic surgery and pcp f/u within 1 week. (2) Sjoegren syndrome: Plan: Chronic. Well controlled with medication -Continue Hydroxychloroquine (3) Depression: Plan: Chronic. Stable on medication -Continue Desipramine 100mg po qHS -Continue Clonazepam 0.25mg po qHS (4) Hypothyroidism: Plan: Chronic. Stable on medication. Last TSH on 09/24/21 = 1.58 -Continue Synthroid 100mcg po daily Ppx - Low risk for DVT Code - Full per discussion with patient (2) Cellulitis of hand, right: Total Time Total Time Spent Total Time Spent (In Minutes): 30 Discharge Plan Discharge Items Patient Disposition: Home - Self-Care Reason For Visit: DOG BITE RIGHT HAND Discharge Diagnosis: Dog Bite Activity: Per Instructions section Weightbearing: Right weightbearing Weightbearing Comment: upper extremity Non-emergency contact: Primary Care Provider and Surgeon Call non-emergency contact if: you have any medication questions, your symptoms worsen and your temperature is above 101.5 Follow-up/Referrals: Marysol Gutiérrez MD [Primary Care Provider] - Dylan Pederson MD [Physician] - (call Thursday for an appointment - need to be seen in next 3-5 days - sometime this week) Diet: Regular Addtl Attending Provider Instructions: Hospital course: You were seen in the hospital due to cellulitis of the right hand secondary to a dog bite that occurred 3 days ago. While you were here you were started on antibiotics and kept for 24 hours. At evaluation on the day of discharge, there was significant improvement in erythema and swelling on your hands. You are also seen by orthopedic surgery who had also deemed that you were safe to be discharged due to your good response to antibiotic therapy. At this time we are going to send you home with Augmentin, an oral form of the IV medications that you have been receiving in the hospital, for which she will take an additional 8 days totaling 10 days of antibiotic treatment. Orthopedic surgery would like for you to call tomorrow to set up a follow-up appointment within the next week. Also, please set up a follow-up appointment with your primary care provider within the next week. Care instructions: Keep your right hand elevated above your heart whenever possible. We encourage you to do full range of motion of the fingers and wrist of the right hand is much as possible. Conservative measures such as utilizing ice, NSAIDs, or Tylenol are completely appropriate and we encouraged their use to help with pain or swelling. We recommend changing the bandage at least once a day to keep the wound clean and dry. If you develop fever, nausea, vomiting, shortness of breath, or chest pain, this could be a sign of systemic infection and he should go to the emergency room for further evaluation. It has been a pleasure to be a part of your care and we wish you the best in your recovery in your health. Addtl Speech And Hearing Director Provider Instructions: Elevate right hand above your heart. Do full range of motion of fingers right hand as much as possible. Ice to right hand as needed for pain/swelling. Antibiotics as ordered. Tylenol or Ibuprofen as needed for pain/swelling or pain medication as prescribed. Allowed to clean wound with soap and water. Keep wound right hand covered, keep clean and dry. Call Dr. Pederson's office for an appointment on Thursday, need to be rechecked sometime this week. Call [phone] with any questions or concerns. Pending Studies at Discharge: No Stand-Alone Forms: My [employer], Smoking Cessation Medications and DC Order Prescriptions: New amoxicillin-pot clavulanate 875-125 mg tablet 1 tab PO BID 8 Days Qty: 16 RF: 0 Continued desipramine 100 mg tablet 100 mg PO HS Qty: 90 RF: 1 clonazepam 0.5 mg tablet 0.25 mg PO HS Qty: 30 RF: 3 levothyroxine [Synthroid] 100 mcg tablet 100 mcg PO QAM Qty: 90 RF: 1 hydroxychloroquine 200 mg tablet 200 mg PO QAM RF: 0 multivitamin [Daily Multi-Vitamin] tablet 1 tab PO QPM RF: 0 biotin 1 mg capsule 1 mg PO DAILY RF: 0 calcium carbonate [Calcium 600] 600 mg calcium (1,500 mg) tablet 600 mg PO HS RF: 0 loratadine 10 mg capsule 10 mg PO DAILY PRN (Reason: Allergy Symptoms) RF: 0 conjugated estrogens 0.625 mg/gram cream 0.625 mg PV 2XWK PRN (Reason: dryness) RF: 0 Glucosamine Chondroitin 550-30-1 mg Capsule 1 cap PO HS RF: 0 tretinoin 0.1 % cream 1 applic TOPICAL HS RF: 0 Discharge Orders: Discharge Order (Routine); Ordered 11/10/21 Ordered By: Mauricio Garza/Other Patient Handouts: Cellulitis Dc, ED Dog Bite Admission Data Admit Date/Time: 11/09/21 01:31 Attending Provider: Shira De Oliveira Admit Provider: Little Xiao Primary Care Provider: Marysol Gutiérrez Other Providers: Little Xiao ; Dylan Pederson Other Interventions: Discharge Summary Assessment (RN) Last Done: 11/10/21 14:09 Supervising Physician Co-Signing Physician Notes Resident Physician Supervision Note: I independently interviewed and examined the patient and verified the hwang history and physical, reviewed labs and image studies and agree with resident Dr. Gómez findings and care plan.
== END 2021-11-10 14:42 | disposition home or self-care (01) ==
LOC: ED 21:54 → 3W 21:54 → SUATTDRO 11-09 01:31 → 3W 11-09 02:34

== ENCOUNTER 2024-06-29 18:55 | Observation (INO) ==
[2024-06-29] MEDS: oxyCODONE HCL IR 5 MG TAB (IMMEDIATE RELEASE) PO STA (20:04)
--- NOTE | 2024-06-29 20:43 | Emergency Department Note ---
ED Provider Note History of Present Illness Chief Complaint: Wrist Pain Stated Complaint: RT WRIST PAIN Time Seen by Provider: 06/29/24 19:28 Source: patient Mode of arrival: ambulatory Limitations: no limitations Patient is a 68-year-old female who presents to the emergency department with complaints of right wrist pain. Patient states that she had a ground-level fall onto a concrete steps where she attempted to catch herself with her wrist and caused this right wrist injury. Patient denies hitting her head or any other injuries from this fall. Patient denies taking any blood thinners. Home Medications Medication Instructions Recorded Confirmed Type hydroxychloroquine 200 mg tablet 200 mg PO QAM 07/09/19 06/29/24 History multivitamin (Daily Multi-Vitamin 1 tab PO QPM 07/09/19 06/29/24 History tablet) calcium carbonate (Calcium 600) 600 mg PO HS 07/14/19 06/29/24 History glucosamine sulf dipot 1 cap PO HS 07/31/20 06/29/24 History chlr,msm,chond 550 mg-C 30 mg-alexandra 1 mg capsule (Glucosamine Chondroitin) biotin 1 mg capsule 1 mg PO DAILY 06/25/21 06/29/24 History tretinoin 0.1 % topical cream 1 applic topical HS 11/09/21 06/27/24 History zoledronic acid 5 mg/100 mL in 1 ea IV .annual #100 mL 04/03/23 06/27/24 Rx mannitol 5 %-water intravenous piggybck (Reclast) ferrous sulfate 325 mg (65 mg 325 mg PO DAILY 05/01/23 06/29/24 History iron) tablet (Monik-Time) vitamins A,C,P-wglo-usmjuf 2,148 2 tab PO BID 05/01/23 06/27/24 History mcg-113 mg-45 mg-17.4 mg tablet (PreserVision AREDS) levothyroxine 100 mcg tablet 100 mcg PO QAM #90 tabs 04/07/24 06/29/24 Rx (Synthroid) baclofen 10 mg tablet 10 mg PO TID PRN muscle spasm #60 05/25/24 06/29/24 Rx tabs desipramine 100 mg tablet 100 mg PO HS #90 tabs 06/07/24 06/29/24 Rx oxycodone-acetaminophen 5 mg-325 1 tab PO TID PRN pain #7 tabs 06/27/24 06/27/24 Rx mg tablet (Percocet) clonazepam 0.5 mg tablet 0.25 mg PO HS 06/29/24 06/29/24 History Allergies Allergy/AdvReac Type Severity Reaction Status Date / Time No Known Allergies Allergy Verified 06/27/24 10:23 Past Med/Surg History Problem List (Updated 06/29/24 @ 20:52 by ORTIZ Tobias) Fracture of wrist (Acute) Impacted cerumen of right ear Poison genaro dermatitis Adnexal cyst Hematuria COVID-19 Sjoegren syndrome (Chronic) Anemia (Acute) Thoracic back pain (Acute) Sleep walking (Acute) 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) Postmenopausal atrophic vaginitis (Acute) Pericardial effusion (Acute) Parasomnia (Acute) Osteoporosis (Acute) Melanoma of ear (Chronic) Megacolon (Acute) Hypothyroidism (Chronic) Depression (Acute) Binge eating disorder (Chronic) REM behavioral disorder (Acute) Bloody stool Abnormal weight loss Change in bowel habits Pelvic pressure in female Medical History Melanoma of ear Unintentional weight loss per pt 5lbs History of anemia History of pericarditis x2 episodes at age 55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, 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 Surgical History History of wisdom tooth extraction Status post pericardiocentesis Hx of colonoscopy History of Mohs micrographic surgery for skin cancer History of tubal ligation History of hysteroscopy with resection for intrauterine polyp removal History of dilation and curettage History of cataract surgery bilt Family History Sister Asthma Mother Lupus Family history of diabetes mellitus Father Grandmother (Maternal) Family history of diabetes mellitus Grandfather (Paternal) Family history of diabetes mellitus Other No family history of adverse response to anesthesia Denies family history of Ovarian cancer Prostate cancer Myocardial infarction Breast cancer Colorectal cancer Uterine cancer Social History Smoking Status: Never smoker Second Hand Exposure: No; Do You Dip or Chew Tobacco: No; Tobacco Cessation Education Requested by Patient: No Hx Alcohol Use: Yes Alcohol type: wine Alcohol Intake Frequency: Monthly or Less Hx Substance Use: No Preferred Language: Icelandic Communication Ability: Effective Visual Impairment: Limited Hearing Ability: Normal Global Safety Officer Required: No Beliefs That Will Affect Care: None marital status: Current Living Situation: Spouse current occupational status: retired How many Children do You have: 1 Other Information That Helps Us Care for You: No Feels Safe at Home: Yes Childhood Exposure to Second-Hand Smoke: No Diet: regular caffeine: Yes during the past year weight has: remained stable Dental Care, Regularly: Yes Physical Activity Frequency: Daily Seatbelt Use: always Sunscreen Use: Yes Do you think of yourself as: straight/heterosexual Sexual Activity: has been sexually active within the last 12 months Gender Identity: Female Assistive Devices: None Physical Exam Vital Signs Vital Signs - 24 hr 06/29/24 19:02 06/29/24 20:06 Temperature 36.4 C L Temperature Source Temporal Artery Scan Pulse Rate 82 Pulse Rate [Right] 79 Pulse Rhythm [Right] Regular Pulse Strength [Right] Normal Respiratory Rate 18 20 Respiratory Effort / Characteristics Non-Labored Spontaneous Non-Labored Spontaneous Respiratory Depth Normal Normal Respiratory Pattern Regular Regular Blood Pressure 126/82 Blood Pressure [Left Arm] 123/84 Blood Pressure Mean 96 Blood Pressure Mean [Left Arm] 97 Blood Pressure Position [Left Arm] Lying Pulse Oximetry 100 97 Oxygen Delivery Method Room Air Room Air Sepsis Recent Fever Within 48 Hours No Sepsis New/Unexplained Change in Mental Status N/A Sepsis Action Taken by Nursing No Action Required Vital Signs: Reviewed Nurse's notes, vital signs stable. GENERAL: 68-year-old female, in no acute distress, but appears to be in pain, well-developed, well-neurished. NEURO: Alert and oriented to person place and time. Normal sensation to light and sharp touch. MUSCULOSKELETAL: There is obvious deformity of the right wrist. There is tenderness and edema over entire wrist, primarily on the medial side. Range of motion is significantly limited due to discomfort. There is no tenderness of the elbow, hand or fingers. Strength is also decreased due to patient's discomfort. Radial pulse 2+. SKIN: Normal and intact. The hand is warm and well perfused with capillary refill less than 2 seconds. Course Administered Medications Discontinued Medications Clonazepam (Clonazepam 0.25 Mg Od Tab) 0.25 mg PO NOW STA Stop: 06/29/24 21:01 Last Admin: 06/29/24 21:27 Dose: 0.25 mg Documented By: PADMAJA Desipramine HCl (Desipramine Hcl 50 Mg Tab) 100 mg PO NOW STA Stop: 06/29/24 21:01 Last Admin: 06/29/24 21:27 Dose: 100 mg Documented By: PADMAJA Oxycodone HCl (Oxycodone Hcl Ir 5 Mg Tab (Immediate Release)) 5 mg PO NOW STA Stop: 06/29/24 19:50 Last Admin: 06/29/24 20:04 Dose: 5 mg Documented By: JENNIFER Medical Decision Making Differential Diagnosis Wrist sprain, muscle strain, fracture, dislocation, soft tissue injury, among others Medical Records Attestation: I reviewed the patient's medical records. Home Medications was personally reviewed by me Laboratory Data 06/29/24 22:27 06/29/24 22: Imaging Data Attestation: I personally reviewed and interpreted this imaging study as follows: My Impression: Comminuted, displaced right radial fracture MDM Narrative Patient is a 68-year-old female who presents to the emergency department complaints of right wrist pain. Patient states that she had a ground-level fall and attempted to catch herself on the concrete steps and injured her right wrist. Patient denies hitting her head and denies any other injuries at this time. Patient was evaluated by myself and findings were noted in the physical exam above. Patient was ordered an x-ray of her right wrist which was interpreted by myself to show a comminuted and displaced right radial fracture. Due to the patient's injury I contacted orthopedics. I spoke with Dr. Yoo who stated that the patient would require surgical intervention, which he can perform tomorrow. He wished the patient would be admitted under the medical service due to the patient's age. [facility] this patient under their medical service. I spoke with Dr. Littel Xiao who accepted the patient and will admit the patient onto her medical service. Please refer to their documentation for further management of this patient. Impression Fracture of wrist Discharge Plan Visit Data Chief Complaint: Wrist Pain Stated Complaint: RT WRIST PAIN ED Provider: [facility] Midlevel Provider: Cadence Isabel Discharge Problem: Fracture of wrist Patient Disposition: Admitted As Inpatient Discharge Instructions Interventions: ED Discharge Assessment Last Done: 06/29/24 21:43 Discharge Problem: Fracture of wrist Qualifiers: Encounter type: initial encounter Fracture type: closed Laterality: right Q ualified Code(s): S62.101A - Fracture of unspecified carpal bone, right wrist, initial encounter for closed fracture
--- NOTE | 2024-06-29 20:47 | History & Physical Report ---
Date of Service June 29, 2024 Assessment & Plan (1) Fracture of wrist: Plan: 68yo male with ground level fall resulting in right wrist fracture. Patient neurovascularly intact. Pain is well controlled at present. Case discussed with Orthopedic Surgery who recommends admission for OR in AM -Admit to medical -Brace placed in ER - maintain -Pain control with Tylenol PRN, Oxycodone PRN -NPO after midnight -Orthopedic Surgery consultation appreciated (2) Hypothyroidism: Plan: Chronic -Continue Synthroid (3) Sjoegren syndrome: Plan: Chronic -Continue Plaquenil Plan Anxiety/Depression -Continue Clonazepam -Continue Desipramine History of Present Illness Chief Complaint: right wrist fracture Primary Care Provider: Marysol Gutiérrez MD Shira Thompson is a 68yo female with history of Sjogren syndrome on Plaquenil, Hypothyroidism and depression presenting from home after a fall. Patient was helping to unload a truck at the [employer] when she missed a step and fell. She landed on her outwardly extended right arm and wrist. Patient had immediate pain in the right wrist. She denies head trauma or loss of consciousness. She has full recollection of the incident. Patient did become diaphoretic following her fall but denies chest pain, palpitations, SOB, syncope. No abdominal pain, nausea, vomiting, diarrhea. In the ER patient afebrile, HD stable, NAD ER Course: Desipramine Clonazepam Oxycodone Allergies Allergy/AdvReac Type Severity Reaction Status Date / Time No Known Allergies Allergy Verified 06/27/24 10:23 Home Medications Medication Instructions Recorded Confirmed Type hydroxychloroquine 200 mg tablet 200 mg PO QAM 07/09/19 06/29/24 History multivitamin (Daily Multi-Vitamin 1 tab PO QPM 07/09/19 06/29/24 History tablet) calcium carbonate (Calcium 600) 600 mg PO HS 07/14/19 06/29/24 History glucosamine sulf dipot 1 cap PO HS 07/31/20 06/29/24 History chlr,msm,chond 550 mg-C 30 mg-alexandra 1 mg capsule (Glucosamine Chondroitin) biotin 1 mg capsule 1 mg PO DAILY 06/25/21 06/29/24 History tretinoin 0.1 % topical cream 1 applic topical HS 11/09/21 06/27/24 History zoledronic acid 5 mg/100 mL in 1 ea IV .annual #100 mL 04/03/23 06/27/24 Rx mannitol 5 %-water intravenous piggybck (Reclast) ferrous sulfate 325 mg (65 mg 325 mg PO DAILY 05/01/23 06/29/24 History iron) tablet (Monik-Time) vitamins A,C,P-hfmy-buuczm 2,148 2 tab PO BID 05/01/23 06/27/24 History mcg-113 mg-45 mg-17.4 mg tablet (PreserVision AREDS) levothyroxine 100 mcg tablet 100 mcg PO QAM #90 tabs 04/07/24 06/29/24 Rx (Synthroid) baclofen 10 mg tablet 10 mg PO TID PRN muscle spasm #60 05/25/24 06/29/24 Rx tabs desipramine 100 mg tablet 100 mg PO HS #90 tabs 06/07/24 06/29/24 Rx oxycodone-acetaminophen 5 mg-325 1 tab PO TID PRN pain #7 tabs 06/27/24 06/27/24 Rx mg tablet (Percocet) clonazepam 0.5 mg tablet 0.25 mg PO HS 06/29/24 06/29/24 History Past Med/Surg History Problem List Fracture of wrist (Acute) Impacted cerumen of right ear Poison genaro dermatitis Adnexal cyst Hematuria COVID-19 Sjoegren syndrome (Chronic) Anemia (Acute) Thoracic back pain (Acute) Sleep walking (Acute) 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) Postmenopausal atrophic vaginitis (Acute) Pericardial effusion (Acute) Parasomnia (Acute) Osteoporosis (Acute) Melanoma of ear (Chronic) Megacolon (Acute) Hypothyroidism (Chronic) Depression (Acute) Binge eating disorder (Chronic) REM behavioral disorder (Acute) Bloody stool Abnormal weight loss Change in bowel habits Pelvic pressure in female Medical History Melanoma of ear Unintentional weight loss per pt 5lbs History of anemia History of pericarditis x2 episodes at age 55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, 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 Surgical History History of wisdom tooth extraction Status post pericardiocentesis Hx of colonoscopy History of Mohs micrographic surgery for skin cancer History of tubal ligation History of hysteroscopy with resection for intrauterine polyp removal History of dilation and curettage History of cataract surgery bilt Family History Sister Asthma Mother Lupus Family history of diabetes mellitus Father Grandmother (Maternal) Family history of diabetes mellitus Grandfather (Paternal) Family history of diabetes mellitus Other No family history of adverse response to anesthesia Denies family history of Ovarian cancer Prostate cancer Myocardial infarction Breast cancer Colorectal cancer Uterine cancer Social History Smoking Status: Never smoker Second Hand Exposure: No; Do You Dip or Chew Tobacco: No; Tobacco Cessation Education Requested by Patient: No Hx Alcohol Use: Yes Alcohol type: wine Alcohol Intake Frequency: Monthly or Less Hx Substance Use: No Preferred Language: Bolivian Communication Ability: Effective Visual Impairment: Limited Hearing Ability: Normal Laundry Housekeeping Aide Required: No Beliefs That Will Affect Care: None marital status: Current Living Situation: Spouse current occupational status: retired How many Children do You have: 1 Other Information That Helps Us Care for You: No Feels Safe at Home: Yes Childhood Exposure to Second-Hand Smoke: No Diet: regular caffeine: Yes during the past year weight has: remained stable Dental Care, Regularly: Yes Physical Activity Frequency: Daily Seatbelt Use: always Sunscreen Use: Yes Do you think of yourself as: straight/heterosexual Sexual Activity: has been sexually active within the last 12 months Gender Identity: Female Assistive Devices: None Review of Systems Review of Systems: All systems reviewed & are unremarkable except as noted in HPI & below Physical Exam Physical Exam: General: patient resting comfortably, NAD, non-toxic in appearance, AA&O x 4 Skin: warm, dry, intact, no rashes or lesions HEENT: NC/AT, PERRL, EOMI, anicteric sclera, conjunctiva without injection, external ear normal to inspection and nontender, nares patent, moist mucus membranes, dentition intact, no oropharyngeal lesions, neck supple, trachea midline, no LAD, no thyromegaly, no JVD Heart: +S1/S2, regular, no m/r/g Lungs: equal air entry bilaterally, no rales/rhonchi/wheezes Abd: +BS, soft, NT/ND, no masses/organomegaly/ascites Ext: warm, 2+ pulses in UE/LE bilaterally, no clubbing/cyanosis or edema. Deformity of right wrist with ecchymosis Neuro: nonfocal, patient AA&O x 4, speech intact, no facial droop, moving all extremities on command with equal strength 5/5 Results & Data Results & Data Vital Signs (Past 12 Hours) Vital Signs Temp Pulse Pulse Resp BP BP Pulse Ox 06/29/24 20:06 79 20 123/84 97 06/29/24 19:02 36.4 C L 82 18 126/82 100 O2 Del Method 06/29/24 20:06 Room Air 06/29/24 19:02 Room Air Laboratory Results Laboratory Results WBC 11.62 K/ul (4.8-10.8) H 06/29/24 22: RBC 3.70 M/uL (4.20-5.40) L 06/29/24: Hgb 11.7 g/dl (12.0-16.0) L 06/29/24: Hct 34.5 % (37.0-47.0) L 06/29/24: MCV 93.2 fL (80.0-100.0) 06/29/24: MCH 31.6 pg (25.0-34.0) 06/29/24: MCHC 33.9 g/dL (32.0-36.0) 06/29/24: RDW Std Deviation 43.1 fL (36.4-46.3) 06/29/24: RDW Coeff of Mer 12.5 % (11.5-14.5) 06/29/24: Plt Count 260 K/uL (130-400) 06/29/24: MPV 9.0 fL (9.4-12.4) L 06/29/24: Immature Gran % (Auto) 0.3 % 06/29/24: Neut % (Auto) 83.2 % 06/29/24: Lymph % (Auto) 10.0 % 06/29/24:27 [place] % (Auto) 5.8 % 06/29/24 22: Eos % (Auto) 0.3 % 06/29/24: Baso % (Auto) 0.4 % 06/29/24: Neut # (Auto) 9.68 K/uL (1.40-6.50) H 06/29/24: Lymph # (Auto) 1.16 K/uL (1.20-3.40) L 06/29/24: [place] # (Auto) 0.67 K/uL (0.11-0.59) H 06/29/24: Eos # (Auto) 0.03 K/uL (0.00-0.50) 06/29/24: Baso # (Auto) 0.05 K/uL (0.00-0.20) 06/29/24: Immature Gran # (Auto) 0.03 K/uL (0.01-0.20) 06/29/24: PT 10.9 Seconds (9.0-12.0) 06/29/24: INR 1.0 (0.9-1.1) 06/29/24: Sodium 133 mmol/L (136-145) L 06/29/24: Potassium 3.6 mmol/L (3.5-5.1) 06/29/24: Chloride 98 mmol/L (98-107) 06/29/24: Carbon Dioxide 28 mmol/L (21-32) 06/29/24: Anion Gap 7 (3-11) 06/29/24: BUN 17 mg/dl (6-23) 06/29/24: Creatinine 0.71 mg/dl (0.6-1.2) 06/29/24: Est Cr Clr Drug Dosing 50.3 ml/min 06/29/24: eGFR 91.41 06/29/24: BUN/Creatinine Ratio 23.9 (10-20) H 06/29/24: Glucose 151 mg/dl (70-99(Fasting)) H 06/29/24: Calcium 9.0 mg/dl (8.6-10.3) 06/29/24 22:27 Diagnostic Findings right wrist fracture Code Status & VTE Plan VTE Prophylaxis Plan VTE Prophylaxis will be ordered: Yes PG Care Time/CCT Total # of Minutes Spent Total Time Spent with Patient: Total time spent is greater than 50% in coordination of care (as documented) at patient's floor/unit and/or counseling patient: Coding Level of Care Code 99119 INT INP/OBS CARE 2/55MIN Diagnoses Fracture of wrist S62.101A Encounter type: initial encounter Fracture type: closed Laterality: right Acquired hypothyroidism E03.9 Hypothyroidism type: acquired Sjogren's syndrome, with unspecified organ involvement M35.00 Sjogren organ or system involvement: unspecified organ involvement (1) Fracture of wrist Encounter type: initial encounter Fracture type: closed Laterality: right Qualified Code(s): S62.101A - Fracture of unspecified carpal bone, right wrist, initial encounter for closed fracture (2) Hypothyroidism Hypothyroidism type: acquired Qualified Code(s): E03.9 - Hypothyroidism, unsp ecified (3) Sjoegren syndrome Sjogren organ or system involvement: unspecified organ involvement Qualified Code(s): M35.00 - Sjogren syndrome, unspecified
[2024-06-29] MEDS: DESIPRAMINE HCL 50 MG TAB PO STA (21:27)
[2024-06-29] MEDS: clonazePAM 0.25 MG OD TAB PO STA (21:27)
[2024-06-29] MEDS ORDERED: ONDANSETRON INJ 2 MG/ML 2 ML VIAL IV PRN (21:57)
[2024-06-29] MEDS ORDERED: POLYETHYLENE (MIRALAX) 17 GM PACK PO PRN (21:57)
[2024-06-29] MEDS ORDERED: oxyCODONE HCL IR 5 MG TAB (IMMEDIATE RELEASE) PO PRN (21:57)
[2024-06-29] MEDS ORDERED: ACETAMINOPHEN 325 MG TAB PO PRN (21:57)
[2024-06-29 22:51] LABS: Basophils # (auto) 0.05 K/uL (0.00-0.20); Basophils % (auto) 0.4 %; Eosinophils # (auto) 0.03 K/uL (0.00-0.50); Eosinophils % (auto) 0.3 %; Hematocrit (blood only) 34.5 % (37.0-47.0); Hemoglobin 11.7 g/dl (12.0-16.0); Immature Granulocytes # (auto) 0.03 K/uL (0.01-0.20); Immature Granulocytes % (auto) 0.3 %; Lymphocytes # (auto) 1.16 K/uL (1.20-3.40); Mean Corpuscular Hemoglobin 31.6 pg (25.0-34.0); Mean Corpuscular Hgb Conc 33.9 g/dL (32.0-36.0); Mean Corpuscular Volume 93.2 fL (80.0-100.0); Monocytes # (auto) 0.67 K/uL (0.11-0.59); Monocytes % (auto) 5.8 %; Neutrophils # (auto) 9.68 K/uL (1.40-6.50); Neutrophils % (auto) 83.2 %; Platelet Count 260 K/uL (130-400); RDW Coefficient of Variation 12.5 % (11.5-14.5); RDW Standard Deviation 43.1 fL (36.4-46.3); White Blood Count 11.62 K/ul (4.8-10.8)
[2024-06-29 23:08] LABS: BUN Creatinine Ratio 23.9 (10-20); Creatinine Clr Calc Pharmacy 50.3 ml/min; Potassium 3.6 mmol/L (3.5-5.1)
[2024-06-29 23:21] LABS: Prothrombin Time 10.9 Seconds (9.0-12.0)
[2024-06-30] MEDS ORDERED: ACETAMINOPHEN 1,000 MG/100 ML VIAL IV PRN (05:08)
[2024-06-30] MEDS: ACETAMINOPHEN 10MG/ML Custom 650 MG in EMPTY BAG 0 ML IV PRN (05:27)
[2024-06-30] MEDS: LEVOTHYROXINE SODIUM 100 MCG TABLET PO SCH (05:30)
[2024-06-30] MEDS ORDERED: ROPIVACAINE 0.5% 5 MG/ML 30 ML VIAL ONE (06:40)
--- NOTE | 2024-06-30 06:50 | XRay Report ---
XR wrist RT min 3V routine HISTORY: 68 years-old Female right wrist pain acute right wrist pain status post fall COMPARISON: 11/09/2021 TECHNIQUE: 4 views of the right wrist FINDINGS: Acute comminuted intra-articular distal radial fracture demonstrates volar displacement of approximat dirk 7 mm and radial displacement of 6 mm. Moderate soft tissue swelling. Acute comminuted minimally d istracted ulnar styloid fracture. 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 IMPRESSION: Acute distal radial and ulnar fractures as above with moderate soft tissue swelling. ACT 112: Negative or not required by law. The above report was generated using voice recognition software. It may contain grammatical, syntax o r spelling errors. Electronically signed by: Otis Owens M.D. 06/30/2024 6:48 AM
--- NOTE | 2024-06-30 08:01 | Orthopedic Consultation ---
Date of Consultation June 30, 2024 Assessment & Plan (1) Volar Sam fracture of right radius: I discussed the fracture with the patient. Since this is an unstable pattern injury surgery is recommended. Without surgery she would be at high risk for malunion and subsequent wrist dysfunction and pain. We reviewed the risks and benefits of surgery, alternatives to surgery, and expected outcomes. She understands she is at increased risk for complications secondary to her osteoporosis as well as her Sjogren syndrome. After reviewing all of her options she elected to proceed with surgery. All questions were answered. Informed consent was signed. Surgical site was marked. She was placed back into her splint. Surgical fixation will happen this morning. High likelihood she could be discharged home this afternoon assuming her pain is well-controlled and she is medically stable. 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 Fell onto her outstretched right hand. Immediate onset of pain. Presented to the emergency room yesterday evening. X-rays were obtained demonstrating a distal radius fracture, volar Sam pattern. I spoke with the emergency room staff. This is a surgical pattern injury. The decision was made to admit her to the hospital on the internal medicine service with a plan for surgical fixation for today. Patient was seen and examined this morning. She was placed in a splint yesterday in the emergency room and reports this is fitting well. Denies any numbness or tingling in her fingers. She denies any previous injuries to the right wrist. She lives with her who has dementia although she says it is mild. She does not have to do any physical tasks for him. Her son is now at home with her . Medical history significant for Sjogren syndrome for which she takes Plaquenil. Also hypothyroidism and depression for which she is medicated. Finally, she does have a diagnosis of osteoporosis. Allergies Allergy/AdvReac Type Severity Reaction Status Date / Time No Known Allergies Allergy Verified 06/27/24 10:23 Home Medications Medication Instructions Recorded Confirmed Type hydroxychloroquine 200 mg tablet 200 mg PO QAM 07/09/19 06/29/24 History multivitamin (Daily Multi-Vitamin 1 tab PO QPM 07/09/19 06/29/24 History tablet) calcium carbonate (Calcium 600) 600 mg PO HS 07/14/19 06/29/24 History glucosamine sulf dipot 1 cap PO HS 07/31/20 06/29/24 History chlr,msm,chond 550 mg-C 30 mg-alexandra 1 mg capsule (Glucosamine Chondroitin) biotin 1 mg capsule 1 mg PO DAILY 06/25/21 06/29/24 History tretinoin 0.1 % topical cream 1 applic topical HS 11/09/21 06/27/24 History zoledronic acid 5 mg/100 mL in 1 ea IV .annual #100 mL 04/03/23 06/27/24 Rx mannitol 5 %-water intravenous piggybck (Reclast) ferrous sulfate 325 mg (65 mg 325 mg PO DAILY 05/01/23 06/29/24 History iron) tablet (Monik-Time) vitamins A,C,I-fdwk-gynkfp 2,148 2 tab PO BID 05/01/23 06/27/24 History mcg-113 mg-45 mg-17.4 mg tablet (PreserVision AREDS) levothyroxine 100 mcg tablet 100 mcg PO QAM #90 tabs 04/07/24 06/29/24 Rx (Synthroid) baclofen 10 mg tablet 10 mg PO TID PRN muscle spasm #60 05/25/24 06/29/24 Rx tabs desipramine 100 mg tablet 100 mg PO HS #90 tabs 06/07/24 06/29/24 Rx oxycodone-acetaminophen 5 mg-325 1 tab PO TID PRN pain #7 tabs 06/27/24 06/27/24 Rx mg tablet (Percocet) clonazepam 0.5 mg tablet 0.25 mg PO HS 06/29/24 06/29/24 History Patient History Medical History Melanoma of ear Unintentional weight loss per pt 5lbs History of anemia History of pericarditis x2 episodes at age 55yrs 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, 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 Surgical History History of wisdom tooth extraction Status post pericardiocentesis Hx of colonoscopy History of Mohs micrographic surgery for skin cancer History of tubal ligation History of hysteroscopy with resection for intrauterine polyp removal History of dilation and curettage History of cataract surgery bilt Family History Sister Asthma Mother Lupus Family history of diabetes mellitus Father Grandmother (Maternal) Family history of diabetes mellitus Grandfather (Paternal) Family history of diabetes mellitus Other No family history of adverse response to anesthesia Denies family history of Ovarian cancer Prostate cancer Myocardial infarction Breast cancer Colorectal cancer Uterine cancer Social History Smoking Status: Never smoker Second Hand Exposure: No; Do You Dip or Chew Tobacco: No; Tobacco Cessation Education Requested by Patient: No Hx Alcohol Use: Yes Alcohol type: wine Alcohol Intake Frequency: Monthly or Less Hx Substance Use: No Preferred Language: Colombian Communication Ability: Effective Visual Impairment: Limited Hearing Ability: Normal Wardrobe Assistant Required: No Beliefs That Will Affect Care: None marital status: Current Living Situation: Spouse current occupational status: retired How many Children do You have: 1 Other Information That Helps Us Care for You: No Feels Safe at Home: Yes Childhood Exposure to Second-Hand Smoke: No Diet: regular caffeine: Yes during the past year weight has: remained stable Dental Care, Regularly: Yes Physical Activity Frequency: Daily Seatbelt Use: always Sunscreen Use: Yes Do you think of yourself as: straight/heterosexual Sexual Activity: has been sexually active within the last 12 months Gender Identity: Female Assistive Devices: None Physical Exam Physical Exam: on exam she is resting comfortably in bed in no acute distress, alert and oriented x 3. Right wrist exam: Splint was taken down. She has a small abrasion over the dorsal aspect of her hand overlying the base of the fifth metacarpal. She says she scratched this when she fell. This is not in the location of her fracture. No other skin lesions.She is sensation intact to moving light touch in the median ulnar and radial nerve distributions. 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 She does have slight deformity with volar translation of the carpus relative to the forearm. She is tender to palpation at the distal radius Where she has a moderate amount of swelling and some bruising. Results & Data Vital Signs (Past 12 Hours) Vital Signs Temp Pulse Resp BP Pulse Ox O2 Del Method 06/30/24 07:28 36.5 C 81 18 112/71 95 Room Air 06/29/24 21:45 36.8 C 85 18 127/83 98 Room Air 06/29/24 21:45 36.8 C 85 18 127/83 98 Room Air 06/29/24 20:06 79 20 123/84 97 Room Air Diagnostic Findings x-rays of the right wrist done yesterday in the emergency room are independently interpreted by me. She has a volar Sam pattern distal radius fracture which is an unstable injury pattern.
--- NOTE | 2024-06-30 08:08 | Hospitalist Progress Note ---
Date of Service June 30, 2024 Assessment & Plan (1) Fracture of wrist: Plan: 68yo male with ground level fall resulting in right wrist fracture. Patient neurovascularly intact. Pain is well controlled at present. Case discussed with Orthopedic Surgery who recommends admission for OR in AM -Admit to medical -Brace placed in ER - maintain -Pain control with Tylenol PRN, Oxycodone PRN -NPO after midnight -Orthopedic Surgery consultation appreciated For ORIF Right distal radius fracture this morning with Dr Maxwell s/p Right Distal Radius Fracture Open Reduction Internal Fixation(Right) - Yakov Yoo MD 06/30. EBL 5cc Per Dr Maxwell, from an orthopedic standpoint cleared to discharge home this afternoon assuming she is medically stable. She will need to return to our clinic 2 weeks from now for removal of her splint, x-rays out of the splint, and see physical therapy for a custom thermoplastic splint. No DVT prophylaxis is indicated for this small upper extremity surgery. (2) Hypothyroidism: Plan: Chronic. TSH wnl. Continues home Synthroid. Na chronic low/stable, on clonazepam at baseline 0.25mg HS for anxiety/depression as well as Desipramine (3) Sjoegren syndrome: Plan: Chronic/stable, continues on Plaquenil Plan Dispo: possible discharge this afternoon/evening if pain reasonably controlled with outpatient follow up with orthopedics as outlined Admission and Anticipated Discharge Date Admission Date: June 29, 2024 Subjective Attempted to see patient this morning around 10:30 but already down to OR for ORIF and will see about pain control post-operatively if able to discharge this evening or needing to monitor overnight. Results & Data Results & Data Vital Signs (Past 12 Hours) Vital Signs Temp Pulse Resp BP Pulse Ox O2 Del Method 06/30/24 07:28 36.5 C 81 18 112/71 95 Room Air 06/29/24 21:45 36.8 C 85 18 127/83 98 Room Air 06/29/24 21:45 36.8 C 85 18 127/83 98 Room Air 06/29/24 20:06 79 20 123/84 97 Room Air PG Care Time/CCT Total # of Minutes Spent Total Time Spent with Patient: Total time spent is greater than 50% in coordination of care (as documented) at patient's floor/unit and/or counseling patient: Coding Diagnoses Fracture of wrist S62.101A Encounter type: initial encounter Fracture type: closed Laterality: right Acquired hypothyroidism E03.9 Hypothyroidism type: acquired Sjogren's syndrome, with unspecified organ involvement M35.00 Sjogren organ or system involvement: unspecified organ involvement (1) Fracture of wrist Encounter type: initial encounter Fracture type: closed Laterality: right Qualified Code(s): S62.101A - Fracture of unspecified carpal bone, right wrist, initial encounter for closed fracture (2) Hypothyroidism Hypothyroidism type: acquired Qualified Code(s): E03.9 - Hypothyroidism, unspecified (3) Sjoegren syndrome Sjogren organ or system involvement: unspecified organ involvement Qualified Code(s): M35.00 - Sjogren syndrome, unspecified
[2024-06-30 09:00] LABS: Basophils # (auto) 0.04 K/uL (0.00-0.20); Basophils % (auto) 0.4 %; Eosinophils # (auto) 0.09 K/uL (0.00-0.50); Hematocrit (blood only) 33.8 % (37.0-47.0); Hemoglobin 11.2 g/dl (12.0-16.0); Immature Granulocytes # (auto) 0.02 K/uL (0.01-0.20); Immature Granulocytes % (auto) 0.2 %; Mean Corpuscular Hemoglobin 31.5 pg (25.0-34.0); Mean Corpuscular Hgb Conc 33.1 g/dL (32.0-36.0); Mean Corpuscular Volume 95.2 fL (80.0-100.0); Mean Platelet Volume 8.9 fL (9.4-12.4); Monocytes # (auto) 1.19 K/uL (0.11-0.59); Monocytes % (auto) 12.7 %; Neutrophils # (auto) 6.62 K/uL (1.40-6.50); Neutrophils % (auto) 70.7 %; Platelet Count 235 K/uL (130-400); RDW Coefficient of Variation 12.5 % (11.5-14.5); RDW Standard Deviation 43.8 fL (36.4-46.3); Red Blood Count 3.55 M/uL (4.20-5.40); White Blood Count 9.36 K/ul (4.8-10.8)
[2024-06-30 09:14] LABS: Calcium 8.7 mg/dl (8.6-10.3); Creatinine Clr Calc Pharmacy 60.5 ml/min; Potassium 3.9 mmol/L (3.5-5.1)
[2024-06-30] MEDS ORDERED: DEXAMETHASONE SOD INJ 4 MG/ML VIAL ONE (09:25)
[2024-06-30] MEDS ORDERED: LIDOCAINE 2% 2 ML VIAL/AMP(20MG/ML) INFIL ONE (09:25)
[2024-06-30] MEDS ORDERED: ONDANSETRON INJ 2 MG/ML 2 ML VIAL ONE (09:25)
[2024-06-30] MEDS ORDERED: PROPOFOL IV EMULSION 10 MG/ML 20 ML VIAL IV ONE (09:25)
[2024-06-30] MEDS ORDERED: fentaNYL citrate PF 100 MCG/2 ML VIAL ONE (09:26)
[2024-06-30] MEDS ORDERED: MIDAZOLAM HCL 1 MG/ML 2ML VIAL ONE (09:26)
[2024-06-30] MEDS: HYDROXYCHLOROQUINE SULFATE 200 MG TAB PO SCH (09:28)
[2024-06-30] MEDS: LACTATED RINGER'S 1,000 ML IV SCH (09:29)
[2024-06-30 09:30] LABS: Thyroid Stimulating Hormone 1.418 uIu/ml (0.300-4.500)
[2024-06-30] MEDS ORDERED: ePHEDrine sulfate 50 MG/ML AMP IV PRN (10:00)
[2024-06-30] MEDS ORDERED: HYDROmorphone INJ 2 MG/ML SYR/VIAL IV PRN (10:00)
[2024-06-30] MEDS ORDERED: ATROPINE SULFATE 0.1 MG/ML 10ML SYR IV PRN (10:00)
--- NOTE | 2024-06-30 10:07 | Anesthesiology Consultation ---
Date of Service June 30, 2024 Assessment & Plan Chart Review Chart Review: Acceptable Risk for Surgery Consults Requested none ASA ASA3 Proposed Anesthesia Anesthesia Type: General Regional Risk / Benefits Reviewed With: PT / POA / Parent / Guardian, Accepts Plan and Informed Consent Obtained History Surgery Operation Date: 06/30/24 08:20 Proposed Procedures p Right Distal Radius Fracture Open Reduction Internal Fixation - Yakov Yoo MD Height/Weight Height: 4 ft 11 in Weight: 46.81 kg Allergies Allergy/AdvReac Type Severity Reaction Status Date / Time No Known Allergies Allergy Verified 06/30/24 09:25 Medications Home Medications Medication Instructions Recorded Confirmed Last Taken hydroxychloroquine 200 mg tablet 200 mg PO QAM 07/09/19 06/29/24 08/06/20 multivitamin (Daily Multi-Vitamin 1 tab PO QPM 07/09/19 06/29/24 08/04/20 tablet) calcium carbonate (Calcium 600) 600 mg PO HS 07/14/19 06/29/24 08/05/20 glucosamine sulf dipot 1 cap PO HS 07/31/20 06/29/24 08/05/20 chlr,msm,chond 550 mg-C 30 mg-alexandra 1 mg capsule (Glucosamine Chondroitin) biotin 1 mg capsule 1 mg PO DAILY 06/25/21 06/29/24 Unknown tretinoin 0.1 % topical cream 1 applic topical HS 11/09/21 06/27/24 Unknown zoledronic acid 5 mg/100 mL in 1 ea IV .annual #100 mL 04/03/23 06/27/24 Unknown mannitol 5 %-water intravenous piggybck (Reclast) ferrous sulfate 325 mg (65 mg 325 mg PO DAILY 05/01/23 06/29/24 Unknown iron) tablet (Monik-Time) vitamins A,C,B-oxsm-yygpdq 2,148 2 tab PO BID 05/01/23 06/27/24 Unknown mcg-113 mg-45 mg-17.4 mg tablet (PreserVision AREDS) levothyroxine 100 mcg tablet 100 mcg PO QAM #90 tabs 04/07/24 06/29/24 Unknown (Synthroid) baclofen 10 mg tablet 10 mg PO TID PRN muscle spasm #60 05/25/24 06/29/24 Unknown tabs desipramine 100 mg tablet 100 mg PO HS #90 tabs 06/07/24 06/29/24 Unknown oxycodone-acetaminophen 5 mg-325 1 tab PO TID PRN pain #7 tabs 06/27/24 06/27/24 Unknown mg tablet (Percocet) clonazepam 0.5 mg tablet 0.25 mg PO HS 06/29/24 06/29/24 Unknown Active Medications Generic Name Dose Route Start Last Admin Trade Name Freq PRN Reason Stop Dose Admin Hydroxychloroquine Sulfate 200 mg 06/30/24 09:00 06/30/24 09:28 Hydroxychloroquine Sulfate 200 Mg Tab PO 07/30/24 08:59 Not Given QAM CADEN Acetaminophen 650 mg/ EMPTY 65 mls @ 260 mls/hr 06/30/24 05:11 06/30/24 05:47 BAG IV 07/30/24 05:10 Infused Q8H PRN Infusion Pain/Fever Protocol Lactated Ringer's 1,000 mls @ 15 mls/hr 06/30/24 09:45 06/30/24 09:29 Lr IV 07/30/24 09:44 15 mls/hr .Q24H CADEN Administration Levothyroxine Sodium 100 mcg 06/30/24 06:30 06/30/24 05:30 Levothyroxine Sodium 100 Mcg Tablet PO 07/30/24 06:29 Not Given DAILYBB CADEN NPO Date Last Intake of Fluids: 06/29/24 Time Last Intake of Fluids: 22:00 Date Last Intake of Solids: 06/29/24 Time Last Intake of Solids: 22:00 Past Medical History Medical History Melanoma of ear Unintentional weight loss per pt 5lbs History of anemia History of pericarditis x2 episodes at age 55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, 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 Exercise / Class Metabolic Activity II 4-5 Yardwork/Stairs/Walk up hill Past Family History Family History Sister Asthma Mother Lupus Family history of diabetes mellitus Father Grandmother (Maternal) Family history of diabetes mellitus Grandfather (Paternal) Family history of diabetes mellitus Other No family history of adverse response to anesthesia Denies family history of Ovarian cancer Prostate cancer Myocardial infarction Breast cancer Colorectal cancer Uterine cancer Past Surgical History Surgical History History of wisdom tooth extraction Status post pericardiocentesis Hx of colonoscopy History of Mohs micrographic surgery for skin cancer History of tubal ligation History of hysteroscopy with resection for intrauterine polyp removal History of dilation and curettage History of cataract surgery bilt Past Anesthesia History No Hx of Anesthesia Complications and No Family Hx of Anesthesia Complications History of PONV No Hx of PONV Social History Smoking Status: Never smoker Do You Dip or Chew Tobacco: No Hx Alcohol Use: Yes Alcohol type: wine alcohol intake frequency: a few times a month Hx Substance Use: No substance use type: does not use Review of Systems ROS Unobtainable: All systems reviewed & are unremarkable except as noted in HPI & below Constitutional: as per Subjective / HPI Eyes: as per Subjective / HPI Ear, Nose, Mouth, Throat: as per Subjective / HPI Respiratory: as per Subjective / HPI Cardiovascular: as per Subjective / HPI Gastrointestinal: as per Subjective / HPI Genitourinary (Female): as per Subjective / HPI Musculoskeletal: as per Subjective / HPI Integumentary: as per Subjective / HPI Neurologic: as per Subjective / HPI Psychiatric: as per Subjective / HPI Endocrine: as per Subjective / HPI Hematologic / Lymphatic: as per Subjective / HPI Allergy / Immunological: as per Subjective / HPI Physical Exam Vital Signs Last Vital Signs Temp 36.9 C 06/30/24 09:32 Pulse 82 06/30/24 09:32 Resp 18 06/30/24 09:32 BP 112/78 06/30/24 09:32 Pulse Ox 98 06/30/24 09:32 O2 Del Method Room Air 06/30/24 09:32 Constitutional no acute distress ENMT Mouth: + small oral opening Thyromental Distance: < 3.5 Finger Breadths Mallampati Class: II Neck trachea midline Respiratory normal respiratory effort; no stridor Auscultation: lungs clear to auscultation bilaterally Cardiovascular Rate/Rhythm: regular rate and regular rhythm Musculoskeletal right arm cast Neurologic moves all extremities Psychiatric Orientation: alert and oriented x 3 Testing Laboratory Results 06/30/24 08:25 06/30/24 08:25 PT 10.9 Seconds (9.0-12.0) 06/29/24 22:27 INR 1.0 (0.9-1.1) 06/29/24 22:27
[2024-06-30] MEDS: ceFAZolin 2000MG 2,000 MG/15 ML SYR IV ONE (10:23)
--- NOTE | 2024-06-30 11:49 | Operative Report ---
Post Operative Report Pre & Post Diagnosis Operation Date: 06/30/24 08:20 Pre-Op Diagnosis: Volar Sam fracture of right radius Post-Op Diagnosis: Volar Sam fracture of right radius I identified the patient and participated in the time-out.: Yes Procedure Operation Date: 06/30/24 08:20 Actual Procedures p Right Distal Radius Fracture Open Reduction Internal Fixation(Right) - Yakov Yoo MD Surgeon Yakov Yoo MD Audio Visual Equipment Rental Clerk Rayna Ling PA-C Estimated Blood Loss 5 (.) Findings Consistent with Post-Op Diagnosis Specimens none Description of Procedure I was present during the entire case assisting with positioning, prepping, draping, wound retraction, wound closure, dressing and sling application. No fellow present. Please see Dr. Yoo procedure note for specifics of the case. I attest to the content of the Intraoperative Record and any orders documented therein. Any exceptions are noted below.
[2024-06-30] MEDS ORDERED: ONDANSETRON INJ 2 MG/ML 2 ML VIAL IV PRN (11:52)
[2024-06-30] MEDS ORDERED: oxyCODONE/ACETAMINOPHEN 5mg/325mg TAB PO PRN ×2 (11:52)
[2024-06-30] MEDS ORDERED: BACLOFEN 10 MG TAB PO PRN (11:53)
--- NOTE | 2024-06-30 11:58 | Operative Report ---
Post Operative Report Pre & Post Diagnosis Operation Date: 06/30/24 08:20 Pre-Op Diagnosis: Volar Sam fracture of right radius Post-Op Diagnosis: Volar Sam fracture of right radius I identified the patient and participated in the time-out.: Yes Procedure Operation Date: 06/30/24 08:20 Actual Procedures p Right Distal Radius Fracture Open Reduction Internal Fixation(Right) - Yakov Yoo MD Surgeon Yakov Yoo MD Vending Route Servicer Rayna Ling PA-C Estimated Blood Loss 5 (.) Findings Consistent with Post-Op Diagnosis Specimens None Anesthesia Type General Regional Complications none Disposition Disposition: Recovery Room Indications 68-year-old female, fell yesterday onto her outstretched right hand. Presented to the emergency room where x-rays demonstrated a volar Sam pattern distal radius fracture which is an unstable injury. She was admitted to the hospital yesterday and kept n.p.o. after midnight overnight. I discussed the diagnosis with her. Surgery is indicated to reduce and stabilize the fracture and give her the best possible long-term function of her right wrist. After reviewing all the risks and benefits of surgery, alternatives, and expected outcomes she elected to proceed. All questions were answered. Informed consent was signed. Description of Procedure Patient was identified on the floor where her surgical site was marked. She was brought down to the preanesthesia area where she received a regional block and then was transported to the operating room where she moved onto the operating room table and general anesthesia was administered with an LMA placed. Perioperative antibiotics were administered. All bony prominences were padded. She was prepped and draped in the usual sterile fashion. Prior to incision a multidisciplinary timeout was called. All in the room were in agreement. I began by exsanguinating the limb with an Esmarch bandage. Tourniquet was inflated to 250 mmHg. A 6 cm long incision was made starting at the wrist crease and moving proximally overlying the FCR tendon. I dissected down to subcutaneous tissues. Small venous crossing branches were coagulated. I incised the fascia overlying the FCR tendon. The FCR was then retracted ulnarly and the subs sheath of the FCR was incised longitudinally. Parona space was entered. Hematoma was evacuated from Parona space. The pronator quadratus was then elevated from radial to ulnar to expose the fracture. At this point the fracture site was suctioned out to remove any hematoma. I was able to provisionally reduce the fracture with traction and volar to dorsal pressure over the fracture fragment. In order to hold the fracture reduced I elected to place the plate on the bone. This was secured with K wires. Fluoroscopy was brought in and we checked the position of her plate as well as the K wires. Small modifications were made to the plate position to optimize it on the bone. Once the plate position was optimized we then placed 3 bicortical screws using 3.5 millimeter screws in the plate. This held our fracture reduced nicely. I then filled the locking holes distally with fully threaded screws. Each of these were drilled in a unicortical fashion and measured so as to keep the screws shorter than the dorsal cortex. Total sick screws were placed in the distal aspect of the plate. Fluoroscopy was brought in and we checked our reduction as well as the plate position and screw lengths all of which I was happy with. The wound was then irrigated out with copious amounts normal saline. The deep dermis was closed with 3-0 Vicryl suture in interrupted fashion. Skin was closed with 4-0 nylon sutures, horizontal mattress interrupted fashion. Sterile dressings were applied. Patient was placed in a volar plaster slab splint with the wrist held at neutral and the fingers left free. She was then awoke from anesthesia and transferred recovery room in stable condition. Postoperative course: Patient will be readmitted to the internal medicine service. From an orthopedic standpoint, she is cleared to discharge home this afternoon assuming she is medically stable. She will need to return to our clinic 2 weeks from now for removal of her splint, x-rays out of the splint, and see physical therapy for a custom thermoplastic splint. No DVT prophylaxis is indicated for this small upper extremity surgery. I attest to the content of the Intraoperative Record and any orders documented therein. Any exceptions are noted below.
--- NOTE | 2024-06-30 12:21 | Fluoroscopy Report ---
INTRAOPERATIVE RADIOGRAPHS CLINICAL HISTORY: Open reduction and internal fixation of a right radial fracture. Fluoro time: 10 seconds Ka,r: 0.25 mGy FINDINGS: 3 spot fluoroscopic views of the right wrist are correlated with radiographs dated 4. Again seen is a displaced fracture ulnar styloid. There is also an impacted and comminuted intra-a rticular fracture of the distal radial metaphysis. There has been buttress plate fixation along the v olar cortex of the distal radius with scientologist of near-anatomic alignment. Several cortical lag sc rews transfix the plate. The orthopedic hardware appears intact. Overlying soft tissue edema is obser rene. IMPRESSION: Intraoperative images from buttress plate fixation of a distal right radial fracture as a [place]. Electronically signed by: Kj Pleitez M.D. 06/30/2024 12:20 PM
[2024-06-30] MEDS: ceFAZolin 2,000 MG/15 ML IV PUSH IV ONE (12:53)
--- NOTE | 2024-06-30 13:03 | Anesthesiology Progress Note ---
Date of Service June 30, 2024 Anesthesia Post Procedure Vital Signs Vital Signs: Temp Pulse Pulse Pulse Resp BP BP 06/30/24 12:50 36.5 C 75 17 111/70 06/30/24 12:35 77 12 109/68 06/30/24 12:20 36.6 C 74 14 106/70 06/30/24 12:10 75 16 111/69 06/30/24 12:00 74 16 109/70 06/30/24 11:48 36.2 C L 77 16 122/69 06/30/24 09:32 36.9 C 82 18 112/78 06/30/24 07:28 36.5 C 81 18 112/71 06/29/24 21:45 36.8 C 85 18 127/83 06/29/24 21:45 36.8 C 85 18 127/83 06/29/24 20:06 79 20 123/84 06/29/24 19:02 36.4 C L 82 18 126/82 Pulse Ox O2 Del Method O2 Flow Rate 06/30/24 12:50 98 Room Air 06/30/24 12:35 98 Room Air 06/30/24 12:20 99 Room Air 06/30/24 12:10 95 Room Air 06/30/24 12:00 100 Oxymask 3 06/30/24 11:48 97 Oxymask 6 06/30/24 09:32 98 Room Air 06/30/24 07:28 95 Room Air 06/29/24 21:45 98 Room Air 06/29/24 21:45 98 Room Air 06/29/24 20:06 97 Room Air 06/29/24 19:02 100 Room Air Pain Intensity Right Wrist: Pain Intensity: 2 Transfer of Care Handoff Completed per policy Notes Mental Status: alert / awake / arousable Patient Amnestic to Procedure: Yes Nausea / Vomiting: adequately controlled Pain: adequately controlled Airway Patency, RR, SpO2: stable & adequate BP & HR: stable & adequate Hydration State: stable & adequate Anesthetic Complications: no major complications apparent
--- NOTE | 2024-06-30 13:50 | Discharge Summary ---
Discharge Summary Date of Service June 30, 2024 Principal Dx & Hospital Course #1 = Principal Diagnosis (1) Fracture of wrist: 68yo female with ground level fall resulting in right wrist fracture after falling on outstretched wrist to brace herself. Thankfully, is LEFT handed. Brace placed in ER, continued tylenol/oxycodone for pain control and made NPO for OR for surgery. NVI on exam and pain controlled with oxycodone and orthopedics consulted for Dr Maxwell for ORIF Patient underwent surgery AM 10/[address] Maxwell s/p Right Distal Radius Fracture Open Reduction Internal Fixation(Right). EBL 5cc Seen post-operatively, doing great. Has nerve block in place and fingers with good cap refill but no return of motor function yet and discussed could take some time to wear off but tolerated the oxycodone last evening for pain and wanting to go home after lunch/post-operative vitals and rx for oxycodone provided. WBC normalized, afebrile. Renal function/electrolytes stable. Per Orthopedics, ok to discharge from an orthopedic standpoint this afternoon and will need to follow up in clinic in 2 weeks for removal of splint, repeat xrays out of the splint and PT for custom thermoplastic splint. No DVT proph indicated. Bowel regimen encouraged on pain medications. (2) Hypothyroidism: Chronic. TSH wnl. Continues home Synthroid. Na chronic low/stable, on clonazepam at baseline 0.25mg HS for anxiety/depression as well as Desipramine (3) Sjoegren syndrome: Chronic/stable, continued on Plaquenil Plan Dispo: discharge this afternoon on oral pain control with outpatient orthopedics follow up. updated at bedside and ok to dc after tolerating diet and post-op vitals unless any issues but appeared to be doing well, VSS with no hypoxia and 96% on RA without reports of CP or SOB and wanting to go home. Notes For Next Care Provider Outpatient follow up orthopedics in 2 wks for splint removal, repeat imaging and then outpt PT and thermoplastic splint Medication Changes From Visit Oxycodone 5mg prn pain Bowel regimen encouraged to prevent constipation Admission HPI Per Admitting Provider Shira Thompson is a 68yo female with history of Sjogren syndrome on Plaquenil, Hypothyroidism and depression presenting from home after a fall. Patient was helping to unload a truck at the [employer] when she missed a step and fell. She landed on her outwardly extended right arm and wrist. Patient had immediate pain in the right wrist. She denies head trauma or loss of consciousness. She has full recollection of the incident. Patient did become diaphoretic following her fall but denies chest pain, palpitations, SOB, syncope. No abdominal pain, nausea, vomiting, diarrhea. In the ER patient afebrile, HD stable, NAD ER Course: Desipramine Clonazepam Oxycodone Admission Exam Per Admitting Provider General: patient resting comfortably, NAD, non-toxic in appearance, AA&O x 4 Skin: warm, dry, intact, no rashes or lesions HEENT: NC/AT, PERRL, EOMI, anicteric sclera, conjunctiva without injection, external ear normal to inspection and nontender, nares patent, moist mucus membranes, dentition intact, no oropharyngeal lesions, neck supple, trachea midline, no LAD, no thyromegaly, no JVD Heart: +S1/S2, regular, no m/r/g Lungs: equal air entry bilaterally, no rales/rhonchi/wheezes Abd: +BS, soft, NT/ND, no masses/organomegaly/ascites Ext: warm, 2+ pulses in UE/LE bilaterally, no clubbing/cyanosis or edema. Deformity of right wrist with ecchymosis Neuro: nonfocal, patient AA&O x 4, speech intact, no facial droop, moving all extremities on command with equal strength 5/5 Discharge Exam General: 68 yo female sitting up in bed post-op, at bedside, NAD and eating lunch, slight caffeine withdrawal headache but drinking tea/cola HEENT: head atraumatic, normocephalic, mmm, trachea midline Resp: even/unlabored, no tachypnea/cough, no wheezing, on room air 96% CV: RRR, no significant m/r/g GI: +BS, soft/NT : no borden MSK/Neuro: no slurred speech/facial droop, not confused, answering questions appropriately, nonfocal splint/beni wrap to RIGHT forearm, c/d/i, nerve block still in place/not able to wiggle fingers but cap refill wnl and well perfused/warm. Psych: AOx3, cooperative with exam, not confused Discharge Plan Discharge Items Patient Disposition: Home - Self-Care Reason For Visit: WRIST FRACTURE, FOR OR IN AM Discharge Diagnosis: RIGHT WRIST FRACTURE Goals: You have been hospitalized for an urgent problem which required surgery. During your stay at [facility], we have made an effort to correct the problem that brought you to the hospital while keeping you as comfortable as possible. Surgery and medications were used to bring your condition under control and your discharge instructions will include directions for any medications you should take after leaving the hospital. Please make sure to follow the advice of your surgeon regarding follow up with the surgeon and with your primary care provider. Activity: As commented below Non-emergency contact: Primary Care Provider and Surgeon Call non-emergency contact if: you have any medication questions, your symptoms worsen, your pain is not controlled and you have a fever Follow-up/Referrals: Marysol Gutiérrez MD [Primary Care Provider] - Yakov Yoo MD [Physician] - (2 weeks) Diet: Heart Healthy Addtl Attending Provider Instructions: You have been hospitalized after a fall and wrist pain and found to have fracture of your RIGHT wrist and orthopedics (Dr Maxwell) was consulted and you underwent surgery to put bones back in place and will continue the splint with follow up with Dr Maxwell in 2 weeks for removal of the splint and repeat imaging and start for physical therapy after cleared. You have a nerve block in place presently which can last through tomorrow but should improve over time. Please contact orthopedics office if having any issues but we also sent in for oxycodone to use for breakthrough pain and can use Tylenol/ibuprofen for nonsevere pain. Additional orthopedics instructions are outlined below. Please follow up with primary care in the next 7-10 days after discharge to monitor your progress after hospitalization. Please follow up with orthopedics as discussed in 2 weeks for routine follow up care and imaging. Please return to the ER with any fever/chills, worsening or uncontrolled pain, shortness of breath, or for any other symptoms concerning for you. It has been a pleasure being a part of the medical team providing for you while you have been in the hospital. Take care! Addtl Social Service Agency Director Provider Instructions: Post-operative Instructions Dear Patient and Family/Friends, Before you are discharged from the hospital, it is important to know what to expect when you get home after surgery. To that end, we have created this sheet of discharge instructions which covers many commonly asked questions. Make sure you go through this sheet in its entirety with your nurse before you are discharged. Please note that we will go over the specifics of your surgery and recovery when you return for your first post-operative visit. Sincerely, Dr. Yoo Pain Expect to be in a fair amount of pain after surgery. Remember, our goal is not to eliminate your pain, but to make it tolerable. It is a good idea to stay ahead of your pain by taking the medications you were prescribed once you get home. Typically, the pain starts improving 3-7 days after surgery. You should start weaning off the narcotic pain medication (oxycodone, hydrocodone, hydromorphone, morphine) as soon as your pain improves. Please call our office if your pain is not adequately controlled. Ice Ice your operative site at least 5 times a day for 15-30 minutes at a time. Make sure you have a thin cloth between the ice or cooling unit and your skin to prevent tenorio bite. This is especially important if you received a nerve block. Continue icing your operative site for the first 5-7 days after surgery, then as needed. Diet/Nausea/Vomiting Start by drinking clear liquids and eating crackers. If you can tolerate this, then you may resume your normal diet. If you feel nauseated or vomit, take Zofran/ondansetron (if prescribed). Please call our office if you have intract able nausea or vomiting, or, if after hours, you may go to the Emergency Room for help. Constipation Constipation is a common side effect of narcotic pain medication. If you have not had a bowel movement within 2 days after surgery, we recommend purchasing an over the counter laxative such as Milk of Magnesia, Dulcolax, or Miralax from a local pharmacy, and taking it as instructed. Call our clinic if any questions. Slings and Braces If you were placed in a sling or brace, it must be worn at all times, including sleep. You may remove your sling or brace for physical therapy, home exercises, and showering. The length of time you will be in your brace and range of motion restrictions depends on what surgery you had; these details will be reviewed at your first post-operative appointment. Nerve block The anesthesia team sometimes places a nerve block to help with post-operative pain control. This results in significant numbness and inability to move the extremity. The nerve block usually wears off in 8-12 hours, but sometimes can last up to 24 hours. Please call our office if you are still unable to move your extremity after 24 hours, unless you received a pain pump to take home. Nerve blocks typically wear off quickly, so start taking pain medication as soon as you start feeling soreness near your surgical site. Weight bearing and Range of Motion. Do not bear any weight through your operative extremity immediately after surgery. If you had upper extremity surgery, do not lift anything with that arm. If you are in a knee brace, keep it locked in place until your follow-up. We will discuss your weight bearing, range of motion, and lifting restrictions in detail at your first post-operative appointment. Continuous Passive Motion (CPM) Machine If you were prescribed a CPM machine, it will start after your first post- operative appointment, at which time we will give you instructions on the range of motion settings and duration of treatment Physical therapy You will be given a prescription for physical therapy or occupational therapy at your first post-operative appointment. Typically, patients start therapy within 1 week of surgery Wound care and showering We will inspect your wound at your first post-operative visit, and may do a dressing change at that time. Most patients will be in a water-proof dressing that is removed 14 days after surgery. It is normal to see some dried blood on the dressing. Do not remove your dressing, paper strips or sutures yourself unless you are given permission. Showering is allowed the day after surgery. Do not scrub or remove any dressings. The wound should not be submerged underwater (i.e. in a bathtub or pool) until 4 weeks after surgery KOFFI stockings If you were given white stockings, these are to be worn at all times except to shower (on both legs) for the first 2 weeks after surgery. Driving You may not drive while taking narcotic pain medication or while in a cast, splint, sling or brace. You, the patient, need to make the final determination about when you are safe to drive, however, the earliest you may consider driving after surgery is below: Hand/Wrist/Elbow Surgery: 3 days Shoulder Surgery: 2 weeks Hip,/Knee/Ankle Surgery: 4 weeks Fracture repair: 6 weeks Return to Work Your return to work depends on what surgery was done and what type of work you do. Please bring any paperwork your employer needs completed to your first post-operative visit. Also, bring a description of your job duties, as this helps us to understand what risks you may face at work. Travel Avoid long distance travel (greater than 1 hour) in airplanes and cars for the first 6 weeks after surgery. If you must travel, you need to have a Doppler ultrasound done before you travel to rule out a blood clot in your legs. Follow-up You should have a follow-up appointment already scheduled 1-2 days after surgery. If not, please contact our office to make this appointment before you leave the hospital. When to call the office It is normal to have swelling and bruising in the limb that was operated on. This will improve with time. It is also normal to have fevers for the first 2 days after surgery. Reasons you should call your doctor include: Uncontrolled pain; Nausea, vomiting, or constipation that does not improve with medication; Fevers over 101.5, chills, sweats; Drainage or bleeding from the wound; Foul odor; Spreading areas of redness; Any other concerns. Contact Information Please call Dr. Yoo's office at [phone] with any concerns. Pending Studies at Discharge: No Stand-Alone Forms: [facility], Smoking Cessation Medications and DC Order Prescriptions: New oxycodone 5 mg Tablet 5 mg PO Q4H PRN (Reason: pain) Qty: 14 0RF Continued levothyroxine [Synthroid] 100 mcg tablet 100 mcg PO QAM Qty: 90 1RF Rx Instructions: Synthroid Brand Necessary desipramine 100 mg tablet 100 mg PO HS Qty: 90 1RF hydroxychloroquine 200 mg tablet 200 mg PO QAM multivitamin [Daily Multi-Vitamin] tablet 1 tab PO QPM biotin 1 mg capsule 1 mg PO DAILY PreserVision AREDS 2,148 mcg-113 mg-45 mg-17.4mg tablet 2 tab PO BID Rx Instructions: administer with AM and PM meals ferrous sulfate [Monik-Time] 325 mg (65 mg iron) tablet 325 mg PO DAILY zoledronic flni-fbivahyb-lweou [Reclast] 5 mg/100 mL piggyback 1 ea IV .annual Qty: 100 0RF Rx Instructions: given by rheumatology [facility] calcium carbonate [Calcium 600] 600 mg calcium (1,500 mg) tablet 600 mg PO HS baclofen 10 mg tablet 10 mg PO TID PRN (Reason: muscle spasm) Qty: 60 3RF Glucosamine Chondroitin 550-30-1 mg Capsule 1 cap PO HS tretinoin 0.1 % cream 1 applic TOPICAL HS clonazepam 0.5 mg tablet 0.25 mg PO HS Discontinued oxycodone-acetaminophen [Percocet] 5-325 mg tablet 1 tab PO TID PRN (Reason: pain) Qty: 7 0RF Discharge Orders: Discharge Order (Routine); Ordered 06/30/24 Ordered By: Mervat Clements Admission Data Admit Date/Time: 06/29/24 20:46 Attending Provider: Luigi Resendez Admit Provider: Little Xiao Primary Care Provider: Marysol Gutiérrez Other Providers: Little Xiao; Yakov Yoo Hospital Stay Data Consultations 06/29/24 20:25 ED Decision to Admit Stat 06/29/24 20:46 Consult Orthopedic Surgery Routine Procedures Performed Operation Date: 06/30/24 08:20 <No data on this case meets the specified criteria> Diagnostic Imagining Performed 06/30/24 08:00 FL wrist RT 2V Routine 06/30/24 09:56 US - OR guided needle placemen Routine Discharge Instructions Given to Patient (Per Discharging Provider) You have been hospitalized after a fall and wrist pain and found to have fracture of your RIGHT wrist and orthopedics (Dr Maxwell) was consulted and you underwent surgery to put bones back in place and will continue the splint with follow up with Dr Maxwell in 2 weeks for removal of the splint and repeat imaging and start for physical therapy after cleared. You have a nerve block in place presently which can last through tomorrow but should improve over time. Please contact orthopedics office if having any issues but we also sent in for oxycodone to use for breakthrough pain and can use Tylenol/ibuprofen for nonsevere pain. Additional orthopedics instructions are outlined below. Please follow up with primary care in the next 7-10 days after discharge to monitor your progress after hospitalization. Please follow up with orthopedics as discussed in 2 weeks for routine follow up care and imaging. Please return to the ER with any fever/chills, worsening or uncontrolled pain, shortness of breath, or for any other symptoms concerning for you. It has been a pleasure being a part of the medical team providing for you while you have been in the hospital. Take care! Supervising Physician Co-Signing Physician Notes The patient was not seen by me. The chart was reviewed. Case discussed with EL Cali. Agree with assessment and plan Total Time Total Time Spent Total Time Spent (In Minutes): 40 Coding Level of Care Code 43612 INP/OBS DISCH >30 MIN Diagnoses Fracture of wrist S62.101A Encounter type: initial encounter Fracture type: closed Laterality: right Acquired hypothyroidism E03.9 Hypothyroidism type: acquired Sjogren's syndrome, with unspecified organ involvement M35.00 Sjogren organ or system involvement: unspecified organ involvement
[2024-06-30 14:49] VITALS: RESP 17
[2024-06-30 15:53] VITALS: BP 121/75; PULSE 88; TEMP 98.1; O2SAT 96
[2024-06-30] MEDS ORDERED: NON-FORMULARY MEDICATION (Glucos Sul 2kcl-Msm-Chond-C-Mn [Glucosamine Chondroitin] 550-30- PO SCH (21:00)
[2024-06-30] MEDS ORDERED: clonazePAM 0.5 MG TAB PO SCH (21:00)
[2024-06-30] MEDS ORDERED: DESIPRAMINE HCL 50 MG TAB PO SCH (21:00)
[2024-06-30] MEDS ORDERED: MULTIVITAMIN TAB PO SCH (21:00)
[2024-06-30] MEDS ORDERED: CALCIUM CARBONATE 500 MG CHEWABLE TAB PO SCH (21:00)
[2024-07-01] MEDS ORDERED: NON-FORMULARY MEDICATION (Biotin 1 mg capsule) PO SCH (09:00)
[2024-07-01] MEDS ORDERED: FERROUS SULFATE 325 MG TAB PO SCH (09:00)
== END 2024-06-30 16:48 | disposition home or self-care (01) ==
LOC: ED 18:55 → 3N 18:55 → SUATTDRO 20:46 → 3N 21:43